=== PATIENT | male | born 1965 | race Caucasian/White ===

== ENCOUNTER → 2018-09-10 11:56 | Outpatient (CLI) | payer OTHER, SELFPAY ==
--- NOTE | 2018-09-10 12:18 | ECHOD_ITS ---
Reason For Study: ARRHYTHMIA Procedure This was a 2D Doppler, Color Flow transthoracic echocardiogram. Exam performed in department. Left Ventricle Normal LV size. Mild concentric left ventricular hypertrophy. Left ventricular systolic function is normal. The estimated ejection fraction is 60 %. Stage 1 diastolic dysfunction. No regional wall motion abnormalities noted. Right Ventricle Normal RV size. Normal systolic function. Atria Normal left atrium. Normal right atrium. Mitral Valve Normal mitral valve. Tricuspid Valve Normal tricuspid valve. Aortic Valve Normal aortic valve. Trisinus/trileaflet aortic valve. Pulmonic Valve Normal pulmonic valve. Great Vessels Mildly dilated aortic root. The pulmonary artery is normal size. Normal inferior vena cava. Pericardium/Pleural No pericardial effusion. MMode/2D Measurements & Calculations LVIDd: 4.8 cm IVSd: 1.2 cm Ao root diam: 3.7 cm LVIDs: 3.5 cm LVPWd: 1.2 cm LA dimension: 3.4 cm RVDd: 3.4 cm FS: 28.0 % LAV(MOD-bp): 39.2 ml LA A4 area: 15.4 cm2 RA A4 area: 11.2 cm2 LAV(MOD-bp) Indexed: 18.7 ml/m2 LAV(MOD-sp2): 39.2 ml LAV(MOD-sp4): 39.2 ml Doppler Measurements & Calculations MV E max canelo: 50.8 cm/sec Lat Peak E' Canelo: 10.2 cm/sec Med Peak E' Canelo: 9.0 cm/sec MV A max canelo: 67.8 cm/sec E/E' lat: 5.0 E/E' med: 5.6 MV E/A: 0.75 Ao V2 max: 117.2 cm/sec LV V1 max: 102.9 cm/sec PA V2 max: 108.4 cm/sec Ao max P.5 mmHg LV V1 max P.2 mmHg Interpretation Summary Normal LV size. Mild concentric left ventricular hypertrophy. Left ventricular systolic function is normal. The estimated ejection fraction is 60 %. Stage 1 diastolic dysfunction. Mildly dilated aortic root. Ordering Physician: Boone Mendoza Referring Physician: Bakari Grant Performed By: Silva Sol, LAZARUS, RVT
[2018-09-10 14:02] LABS: Anion Gap 6 (5-15); BUN 15 mg/dL (7-18); BUN/Creat Ratio 13.6 RATIO (10-20); Chloride 105 mmol/L (98-107); Cholesterol 166 mg/dL (200); EST Glomerular Filtration Rate 75 mL/min (>60); Est Glom Filt Rate - Afr Amer 90 mL/min (>60); Glucose 74 mg/dL (74-106); High Density Lipoprotein 49 mg/dL; Magnesium 1.8 mg/dL (1.6-2.6); Potassium 4.4 mmol/L (3.5-5.1); Sodium Level 139 mmol/L (136-145); Triglycerides 61 mg/dL; Very Low Density Lipoprotein 12 mg/dL (5-40)
--- NOTE | 2018-09-10 15:52 | STRESSREP ---
Stress Test Report Exercise stress test. 52-year-old man with a history of cardiac arrhythmias. Stress protocol: Resting EKG demonstrates normal sinus rhythm with a rate of 71 bpm and occasional premature atrial complexes noted. Resting blood pressure 142/98 mmHg. The patient exercised according to regular Perfecto protocol for total duration of 9 minutes completing stage III of the Perfecto protocol the maximum heart rate attained was 179 bpm which was 106% of maximum predicted heart rate the maximum workload was 10.1 metabolic equivalents. The patient maintained sinus rhythm throughout the recording. At rest there were no ST or T wave changes noted suggest ischemia peak exercise upsloping ST changes only were noted with no meet the criteria for ischemia. No clinical angina was noted no arrhythmias were noted the test was terminated due to leg fatigue. The resting blood pressure is 142/98 with a peak blood pressure of 220/90 mmHg. Rate pressure product was 38,700. Conclusion : Exercise stress test with no EKG criteria for ischemia at a high workload. No clinical angina noted No arrhythmias noted Hypertensive response to exercise.
--- NOTE | 2018-09-10 15:59 | STRESSREP_ITS ---
Stress Test Report Exercise stress test. 52-year-old man with a history of cardiac arrhythmias. Stress protocol: Resting EKG demonstrates normal sinus rhythm with a rate of 71 bpm and occasional premature atrial complexes noted. Resting blood pressure 142/98 mmHg. The patient exercised according to regular Perfecto protocol for total duration of 9 minutes completing stage III of the Perfecto protocol the maximum heart rate attained was 179 bpm which was 106% of maximum predicted heart rate the maximum workload was 10.1 metabolic equivalents. The patient maintained sinus rhythm throughout the recording. At rest there were no ST or T wave changes noted suggest ischemia peak exercise upsloping ST changes only were noted with no meet the criteria for ischemia. No clinical angina was noted no arrhythmias were noted the test was terminated due to leg fatigue. The resting blood pressure is 142/98 with a peak blood pressure of 220/90 mmHg. Rate press ure product was 38,700. Conclusion : Exercise stress test with no EKG criteria for ischemia at a high workload. No clinical angina noted No arrhythmias noted Hypertensive response to exercise.
== END ==
PROVIDERS: Family Provider Family Medicine; PCP Family Medicine; Referring Provider Internal Medicine Cardiovascular Disease; Visit Provider Internal Medicine Cardiovascular Disease
DX: I49.1 Atrial premature depolarization (principal)
CPT/HCPCS: 36415; 80048; 80061; 83735; 93017; 93306

== ENCOUNTER → 2019-02-20 15:23 | Outpatient (CLI) | payer OTHER, SELFPAY ==
[2019-02-20 14:38] VITALS: BMI 33.3
[2019-02-20 17:11] LABS: Absolute Lymphocyte Count 2.73 X10^3/ul (0.83-4.51); Absolute Neutrophil Count 3.9 X10^3/uL (2.0-7.7); Basophil# 0.05 X10^3/uL; Basophil% 0.7 % (0-1); Eosinophil# 0.11 X10^3/uL; Eosinophils% 1.4 % (0-5); Hemoglobin 15.9 g/dl (13.0-16.5); Lymphocyte # 2.73 X10^3/ul (4.0); Lymphocyte % 35.8 % (19-41); Mean Corp Hgb Conc 32.4 g/gl (32-36); Mean Corpuscular Hgb 29.4 pg (27.0-32.0); Mean Corpuscular Volume 90.6 fL (80-94); Mean Platelet Vol. 10.1 fl (6.2-12.0); Monocyte# 0.83 X10^3/uL; Monocyte% 10.9 % (0-10); Neutrophil # 3.88 X10^3/uL (2.7-7.7); Neutrophil % 50.9 % (47-70); POSITIVE COUNT NO; POSITIVE DIFFERENTIAL NO; POSITIVE MORPHOLOGY NO; Platelet Count 260 K/mm3 (150-450); RBC Distribution Width CV 12.7 % (11.6-14.6); RBC Distribution Width SD 42.5 fl (35.1-43.9); Red Blood Count 5.41 M/mm3 (4.6-6.2); White Blood Count 7.6 K/mm3 (4.4-11.0)
[2019-02-20 17:27] LABS: Anion Gap 8 (5-15); BUN 18 mg/dL (7-18); BUN/Creat Ratio 15.7 RATIO (10-20); Calcium,Total 8.9 mg/dL (8.5-10.1); Chloride 106 mmol/L (98-107); Creatinine, Serum 1.15 mg/dL (0.70-1.30); EST Glomerular Filtration Rate 71 mL/min (>60); Est Glom Filt Rate - Afr Amer 86 mL/min (>60); Glucose 95 mg/dL (74-106); Magnesium 2.5 mg/dL (1.6-2.6); Potassium 3.9 mmol/L (3.5-5.1); Sodium Level 143 mmol/L (136-145); Thyroid Stim Hormone (TSH) 1.02 uIU/mL (0.358-3.74)
== END ==
PROVIDERS: Family Provider Family Medicine; PCP Family Medicine; Referring Provider Physician Assistant Medical; Visit Provider Physician Assistant Medical
DX: I10 Essential (primary) hypertension (principal); R53.83 Other fatigue
CPT/HCPCS: 36415; 80048; 83735; 84443; 85025

== ENCOUNTER → 2019-03-26 08:54 | Outpatient (CLI) | payer OTHER, SELFPAY ==
[2019-02-20 14:38] VITALS: BMI 33.3
[2019-03-26 12:10] LABS: Anion Gap 6 (5-15); BUN 18 mg/dL (7-18); BUN/Creat Ratio 15.3 RATIO (10-20); Calcium,Total 8.7 mg/dL (8.5-10.1); Chloride 106 mmol/L (98-107); Creatinine, Serum 1.18 mg/dL (0.70-1.30); EST Glomerular Filtration Rate 69 mL/min (>60); Est Glom Filt Rate - Afr Amer 84 mL/min (>60); Glucose 95 mg/dL (74-106); Potassium 3.9 mmol/L (3.5-5.1); Sodium Level 142 mmol/L (136-145)
== END ==
PROVIDERS: Family Provider Family Medicine; PCP Family Medicine; Referring Provider Physician Assistant Medical; Visit Provider Physician Assistant Medical
DX: I10 Essential (primary) hypertension (principal)
CPT/HCPCS: 36415; 80048

== ENCOUNTER → 2020-10-09 12:08 | Outpatient (CLI) | payer OTHER, SELFPAY ==
[2020-01-07 16:21] VITALS: BMI 32.6
[2020-10-09 12:25] LABS: Absolute Lymphocyte Count 3.39 X10^3/uL (0.83-4.51); Absolute Neutrophil Count 5.9 X10^3/uL (2.0-7.7); Basophil# 0.05 X10^3/uL; Basophil% 0.5 % (0-1); Eosinophil# 0.11 X10^3/uL; Hemoglobin 15.9 g/dL (13.0-16.5); Lymphocyte # 3.39 X10^3/ul (4.0); Lymphocyte % 32.2 % (19-41); Mean Corp Hgb Conc 32.4 g/dL (32-36); Mean Corpuscular Hgb 29.3 pg (27.0-32.0); Mean Corpuscular Volume 90.4 fL (80-94); Mean Platelet Vol. 9.5 fl (6.2-12.0); Monocyte# 1.08 X10^3/uL; Monocyte% 10.2 % (0-10); NRBC Flagged by Analyzer 0 % (0-5); Neutrophil # 5.89 X10^3/uL (2.7-7.7); Neutrophil % 55.9 % (47-70); Platelet Count 252 K/mm3 (150-450); RBC Distribution Width CV 12.6 % (11.6-14.6); RBC Distribution Width SD 41.3 fl (35.1-43.9); Red Blood Count 5.42 M/mm3 (4.6-6.2); White Blood Count 10.5 K/mm3 (4.4-11.0)
== END ==
PROVIDERS: PCP Family Medicine; Referring Provider Family Medicine; Visit Provider Family Medicine
DX: R10.9 Unspecified abdominal pain (principal)
CPT/HCPCS: 36415; 85025

== ENCOUNTER → 2021-01-12 14:16 | Outpatient (CLI) | payer OTHER, SELFPAY ==
[2021-01-06 15:42] VITALS: BMI 33.0
--- NOTE | 2021-01-12 14:18 | ECHOD_ITS ---
Reason For Study: DILATED AORTIC ROOT Procedure This was a 2D Doppler, Color Flow transthoracic echocardiogram. Exam performed in department. Left Ventricle Normal LV size. Left ventricular systolic function is normal. The estimated ejection fraction is 55 %. Stage 1 diastolic dysfunction. No regional wall motion abnormalities noted. Right Ventricle Normal RV size. Normal systolic function. Atria Normal left atrium. Normal right atrium. Mitral Valve Normal mitral valve. Tricuspid Valve Normal tricuspid valve. Aortic Valve Normal aortic valve. Trisinus/trileaflet aortic valve. Pulmonic Valve The pulmonic valve is not well visualized. Great Vessels Normal aortic root. The pulmonary artery is normal size. Normal inferior vena cava. Pericardium/Pleural No pericardial effusion. MMode/2D Measurements & Calculations LVIDd: 5.2 cm IVSd: 1.1 cm Ao root diam: 3.7 cm LVIDs: 3.2 cm LVPWd: 1.1 cm RVDd: 3.2 cm FS: 39.2 % LAV(MOD-bp): 39.6 ml LA A4 area: 14.0 cm2 LA dimension(2D): 3.7 cm LAV(MOD-bp) Indexed: 18.9 ml/m2 LAV(MOD-sp2): 41.9 ml LAV(MOD-sp4): 34.1 ml RA A4 area: 13.7 cm2 Time Measurements MV dec time: 0.23 sec Doppler Measurements & Calculations MV E max canelo: 61.6 cm/sec Lat Peak E' Canelo: 9.9 cm/sec Med Peak E' Canelo: 9.0 cm/sec MV A max canelo: 75.5 cm/sec E/E' lat: 6.2 E/E' med: 6.8 MV E/A: 0.82 Ao V2 max: 138.4 cm/sec LV V1 max: 113.7 cm/sec PA V2 max: 99.1 cm/sec Ao max P.7 mmHg LV V1 max P.2 mmHg Interpretation Summary Normal LV size. Left ventricular systolic function is normal. The estimated ejection fraction is 55 %. Stage 1 diastolic dysfunction. Ordering Physician: Clarissa Roque Referring Physician: Bakari Grant Performed By: Silva Sol, LAZARUS, RVT
== END ==
PROVIDERS: PCP Family Medicine; Referring Provider Physician Assistant Medical; Visit Provider Physician Assistant Medical
DX: I77.810 Thoracic aortic ectasia (principal)
CPT/HCPCS: 93306

== ENCOUNTER 2022-01-06 16:02 | Outpatient (CLI) | payer OTHER, SELFPAY ==
[2022-01-06 17:59] LABS: Anion Gap 3 (5-15); BUN 22 mg/dL (7-18); BUN/Creat Ratio 19.5 RATIO (10-20); Calcium,Total 9.2 mg/dL (8.5-10.1); Chloride 104 mmol/L (98-107); Creatinine, Serum 1.13 mg/dL (0.70-1.30); EST Glomerular Filtration Rate 71 mL/min (>60); Est Glom Filt Rate - Afr Amer 86 mL/min (>60); Glucose 66 mg/dL (74-106); Potassium 3.7 mmol/L (3.5-5.1); Sodium Level 140 mmol/L (136-145)
[2022-01-08 09:51] LABS: MG Sendout 2.1 mg/dL (1.6-2.3)
== END 2022-01-06 23:59 | disposition home or self-care (01) ==
LOC: LAB 16:03
PROVIDERS: PCP Family Medicine; Referring Provider Internal Medicine Cardiovascular Disease; Visit Provider Internal Medicine Cardiovascular Disease
DX: I10 Essential (primary) hypertension (principal)
CPT/HCPCS: 36415; 80048; 83735

== ENCOUNTER → 2022-09-02 | Outpatient (CLI) | payer OTHER, SELFPAY ==
[2022-09-02 14:44] LABS: Anion Gap 4 (5-15); BUN 22 mg/dL (7-18); BUN/Creat Ratio 20.4 RATIO (10-20); Calcium,Total 9.2 mg/dL (8.5-10.1); Chloride 104 mmol/L (98-107); Creatinine, Serum 1.08 mg/dL (0.70-1.30); EST Glomerular Filtration Rate 75 mL/min (>60); Est Glom Filt Rate - Afr Amer 91 mL/min (>60); Glucose 86 mg/dL (74-106); Potassium 3.8 mmol/L (3.5-5.1); Sodium Level 139 mmol/L (136-145)
== END | disposition home or self-care (01) ==
LOC: LAB 13:53
PROVIDERS: PCP Family Medicine; Visit Provider Internal Medicine Cardiovascular Disease
DX: R25.2 Cramp and spasm (principal); R53.1 Weakness
CPT/HCPCS: 36415; 80048

== ENCOUNTER 2023-11-16 20:33 | Observation (INO) | payer OTHER, SELFPAY ==
[2023-11-16 20:34] VITALS: BP 128/100; PULSE 85; RESP 18; TEMP 36.7; O2SAT 98; BMI 32.8
--- NOTE | 2023-11-16 20:36 | EKG12_ITS ---
Test Reason : CP Blood Pressure : / mmHG Vent. Rate : 080 BPM Atrial Rate : 080 BPM P-R Int : 182 ms QRS Dur : 096 ms QT Int : 366 ms P-R-T Axes : 035 -14 014 degrees QTc Int : 422 ms Normal sinus rhythm Normal ECG Confirmed by ALEE HEREDIA, BRAYDON ([id number]), online editor MILE STOEN ([id number]) on 11/17/2023 2:07:05 PM Referred By: Confirmed By:BRAYDON VICKERS MD
--- NOTE | 2023-11-16 20:45 | RAD_ITS ---
INDICATION: chest pain EXAMINATION/TECHNIQUE: X-RAY - XR Chest 1 View COMPARISON: FINDINGS: LINES/DEVICES: None. LUNGS: No consolidation, edema or effusion. No pneumothorax. MEDIASTINUM AND CARDIOVASCULAR STRUCTURES: Cardiac silhouette not enlarged. Central airways and mediastinal contour are unremarkable. BONES AND SOFT TISSUES: Degenerative vertebral changes. RAD/Chest 1 View (Portable) IMPRESSION: No radiographic evidence of acute cardiopulmonary disease. Electronically Signed: Scott Parra DO at 21:02 EST ,
[2023-11-16 20:50] LABS: Absolute Lymphocyte Count 3.11 X10^3/uL (0.83-4.51); Absolute Neutrophil Count 3.7 X10^3/uL (2.0-7.7); Basophil# 0.05 X10^3/uL; Basophil% 0.6 % (0-1); Eosinophil# 0.13 X10^3/uL; Eosinophils% 1.6 % (0-5); Hematocrit 49.9 % (40-54); Hemoglobin 16.3 g/dL (13.0-16.5); Lymphocyte # 3.11 X10^3/ul (0.83-4.51); Lymphocyte % 39.3 % (19-41); Mean Corp Hgb Conc 32.7 g/dL (32-36); Mean Corpuscular Hgb 28.6 pg (27.0-32.0); Mean Corpuscular Volume 87.5 fL (80-94); Mean Platelet Vol. 9.4 fl (6.2-12.0); Monocyte# 0.88 X10^3/uL; Monocyte% 11.1 % (0-10); NRBC Flagged by Analyzer 0 % (0-5); Neutrophil # 3.74 X10^3/uL (2.7-7.7); Neutrophil % 47.3 % (47-70); Platelet Count 230 K/mm3 (150-450); RBC Distribution Width CV 12.6 % (11.6-14.6); RBC Distribution Width SD 40.6 fl (35.1-43.9); White Blood Count 7.9 K/mm3 (4.4-11.0)
[2023-11-16 21:01] VITALS: BP 144/90; PULSE 79; O2SAT 95
[2023-11-16 21:03] LABS: Anion Gap 5 (5-15); BUN 24 mg/dL (7-18); Calcium,Total 9.7 mg/dL (8.5-10.1); Chloride 106 mmol/L (98-107); Creatinine, Serum 1.26 mg/dL (0.70-1.30); EST Glomerular Filtration Rate 63 mL/min (>60); Est Glom Filt Rate - Afr Amer 76 mL/min (>60); Estimated Creatinine Clearance 62.58 ml/min; Glucose 125 mg/dL (74-106); Potassium 3.5 mmol/L (3.5-5.1); Sodium Level 141 mmol/L (136-145)
[2023-11-16 21:07] LABS: Troponin-I HS (w/2H Reflex) 5 pg/mL (3.0-78.0)
--- NOTE | 2023-11-16 21:12 | EDS_ITS ---
HPI History of Present Illness Chief Complaint: Chest Pain Informant: patient Onset/Context/Timing Onset: Weeks Timing: Intermittent Quality: Positive for Pain and Sharp Location: Substernal and Left Chest Narrative Narrative: Patient presents secondary to chest pain and lightheadedness. Patient states for the past couple weeks he has been getting an intermittent sharp pain across the lower sternal area that radiates toward his left chest and sometimes on his left arm. He called Dr. Mendoza's office on Monday and was scheduled to have a stress test in November. Patient states he was told if his symptoms get any worse he should come to the emergency room to be admitted for stress test. Patient states today the pain has been worse. He has felt lightheaded. He has noted decreased activity tolerance stating that he gets winded very easily. Patient states he saw Dr. Mendoza in the past secondary to a irregular heartbeat noted on a physical. He did have a stress test. He has a family history of heart disease with a father having a heart attack at the age of 48. [facility] Medical History COVID-19 (10/21/21) Essential (primary) hypertension PAC (premature atrial contraction) Home Medications ascorbic acid (vitamin C) 1,000 mg tablet 1 g PO DAILY 05/05/23 [History Last Taken Unknown] polyethylene glycol 3350 17 gram oral powder packet (Miralax) 17 g PO DAILY 05/05/23 [History Last Taken Unknown] hydrochlorothiazide 25 mg tablet 25 mg PO DAILY #90 tabs 11/06/23 [Rx Last Taken Unknown] Allergy/AdvReac Type Severity Reaction Status Date / Time No Known Allergies Allergy Verified 11/16/23 20:36 Family History Father Myocardial infarction OR age 39 CAD (coronary artery disease) CABG age 71 Social History Smoking Status: Former smoker alcohol intake: current alcohol intake frequency: holidays/special occasions only ROS ROS ED Constitutional Constitutional ED: Denies chills or fever(s) Eyes Eyes: Denies change in vision or discharge from eye(s) ENT ENT ED: Denies discharge from eye(s), rhinorrhea or sore throat Cardiovascular Cardiovascular: Reports chest pain; Denies palpitations Respiratory/Chest Respiratory/Chest: Reports dyspnea; Denies cough Gastrointestinal Gastrointestinal: Denies abdominal pain, nausea or vomiting Genitourinary Genitourinary ED: Denies dysuria Musculoskeletal Musculoskeletal: Denies back pain or extremity pain Integumentary Denies Abrasions or rash Neurologic Neurologic: Denies headache(s) or weakness Psychiatric Psychiatric: Denies anxiety or depression Allergic/Immunologic Allergic/Immunologic ED: Denies lip swelling or urticaria EXAM Physical Exam Const Vital Signs: 11/16/23 20:34 11/16/23 21:01 11/16/23 21:01 Temperature 98.0 F Temperature Source Temporal Pulse Rate 85 79 Respiratory Rate 18 Blood Pressure 128/100 H 144/90 H Blood Pressure Mean 109 108 Pulse Ox 98 95 Oxygen Delivery Method Room Air Room Air Room Air Positive well nourished and well developed General Appearance ED: well developed HEENT Reports moist mucous membranes Eyes EOMs intact bilaterally Chest Wall inspection of chest normal Chest Narrative: Minimal tenderness along the left sternal border. Resp normal respiratory effort and clear to auscultation bilaterally Cardio regular rate and regular rhythm GI soft to palpation and non-tender Extremity normal to inspection Neuro oriented x3 and no sensory deficits noted Sensorium / Orientation: alert Motor Exam: strength 5/5 throughout Psych mental status grossly normal Skin no rashes or lesions noted Heart Score History: Slightly/Non-Suspicious ECG: Normal Age: >45 - <65 years Risk Factors: 1 or 2 Risk Factors Troponin: </= Normal Limit Score: 2 MDM MDM MDM Narrative Medical decision making narrative: Patient placed on cardiac catheterization technician. IV line established. Lab work initiated by nursing protocol. Aspirin given at the time of my exam. Chest x-ray obtained to evaluate for acute lung pathology, cardiac size, or mediastinal abnormality. History & Record Review Discussion w/independent historian: Patient and Family Lab Data Attestation: I reviewed the patient's lab results. Labs: Laboratory Results - last 24 hr 11/16/23 20:40 WBC 7.9 RBC 5.70 Hgb 16.3 Hct 49.9 MCV 87.5 MCH 28.6 MCHC 32.7 RDW Std Deviation 40.6 RDW Coeff of Raiza 12.6 Plt Count 230 MPV 9.4 Immature Gran % (Auto) 0.100 Neut % (Auto) 47.3 Lymph % (Auto) 39.3 Coal % (Auto) 11.1 H Eos % (Auto) 1.6 Baso % (Auto) 0.6 Absolute Neuts (auto) 3.7 Absolute Lymphs (auto) 3.11 Nucleated RBC % 0 Sodium 141 Potassium 3.5 Chloride 106 Carbon Dioxide 30.0 Anion Gap 5 BUN 24 H Creatinine 1.26 Estim Creat Clear Calc 62.58 Est GFR (MDRD) Af Amer 76 Est GFR (MDRD) Non-Af 63 BUN/Creatinine Ratio 19.0 Glucose 125 H Calcium 9.7 Troponin I High Sens 5 Radiography Chest X-Ray - ED: 1 View, Read by ED Physician, Normal, Heart, Lungs and Mediastinum Diagnostic Testing: Clinical Impression(s) from Imaging Studies Chest X-Ray 11/16/23 20:45 IMPRESSION: No radiographic evidence of acute cardiopulmonary disease. Electronically Signed: Scott Parra DO at 21:02 EST Reading Location ID and State: [facility] / [place] Tel [phone], Service support , EKG Initial EKG: Attestation: I personally reviewed and interpreted this EKG as follows: Interpretation: Sinus Rhythm (Sinus rhythm at 80 bpm. No acute ischemia.) Treatment and Re-Evaluation :: CBC was normal white count 7.9 with a hemoglobin of 16.3. Chemistry studies are unremarkable. Initial troponin is normal at 5. Portable chest x-ray per my interpretation reveals no acute abnormalities. EKG is sinus rhythm with no acute ischemia. Given that the patient is already scheduled for a stress test and was advised to come to the emergency room if his symptoms get worse so that his stress could be done earlier I will speak with hospitalist. I discussed this with the patient and at bedside who are comfortable with this plan. Discharge Plan Triage Chief Complaint: Chest Pain ED Provider: Bell Miller Dx/Rx/DC Orders Clinical Impression: Chest pain Prescriptions: No Action polyethylene glycol 3350 [Miralax] 17 gram powder in packet 17 g PO DAILY ascorbic acid (vitamin C) 1,000 mg tablet 1 g PO DAILY hydrochlorothiazide 25 mg tablet 25 mg PO DAILY Qty: 90 3RF Primary Care Provider: Bakari Grant Referrals: Bakari Grant DO [Primary Care Provider] - Disposition Disposition: Acute Care Hospital [facility]
[2023-11-16] MEDS: Aspirin 81 MG TAB.CHEW 324 MG PO (21:42)
--- OUTSIDE RECORDS SUMMARY | 2023-11-16 21:53 | XMS RPT_ITS ---
Author Name Auto Generated Organization [facility] Care Team Providers Care Filling And Packing Supervisor Name Role Phone JAIMEE RAMÍREZ Consulting Unavailable JAIMEE RAMÍREZ Attending Unavailable PHYSICIAN, NOT RECORDED Primary Care Unavaila ble PROBLEMS DATE TYPE CONDITION / CODE ATTENDING STATUS [facility] RCE 06/19/2023 Admitting Diagnosis Personal history of malignant neoplasm of esophagus / Z85.01(ICD-10) JAIMEE RAMÍREZ Active [facility] ([place]) PROCEDURES No Procedure Records Found RESULTS FINAL SURGICAL PATHOLOGY REPORT Observed : 06/19/2023 10:38 AM Status: F Source: [facility] REPOSITORY . Pathology Reports Accession: Collected Date/Time: Received Date/Time: Pathologist: [id number] 06/19/2023 10:38 EDT 06/20/2023 14:23 EDT MD DONALDO HAAS Final Surgical Pathology Report DIAGNOSIS: CECUM, BIOPSY: - TUBULAR ADENOMA CLINICAL INFORMATION: HISTORY OF POLYPS SPECIMEN: A CECUM POLYP - R/O ADENOMA GROSS DESCRIPTION: All parts labelled with patient name and [id number] Received in formalin labeled cecum polyp is 1 martinez tissue fragment measuring 0.1 cm. TS-1 Yeni Good, Grossing Microphone Operator/ Dr. Pj Garcia, Pathologist Dictated by Yeni Good MICROSCOPIC DESCRIPTION: The microscopic examination is performed, except in the case of Gross Only. Electronically Signed by Pathology Report verified by [facility] DONALDO HAAS MD Sign out Date: 06/21/2023 11:26 Performing Lab: [facility], [address] [place] [id number] [place] [address] Pathology Dept Disclaimer If ancillary studies were utilized, the following Laboratory Developed Test (LDT) disclaimer will apply: Under CLIA requirements, [facility] is qualified to perform high complexity testing. For all ancillary stains, positive and negative controls stain appropriately. Performance characteristics of immunohistochemical and chromogenic in-situ hybridization tests have been determined by [facility]. These tests are used for clinical purposes, They should not be regarded as investigational or for research. ALLERGIES No Allergies Records Found ENCOUNTERS ADMIT/DISCHARGE ACCOUNT NUMBER ADMITTING ENCOUNTER CLASS LOCATION SOURCE 06/19/2023/ 3 [id number] Ambulatory BBuilding:DR SEBASTIAN [facility] ([place]) PAYERS ENCOUNTER GUARANTOR PAYER SUBSCRIBER SOURCE 06/19/2023 JIMENEZ BECERRA: [id number] [address] [place], [place] [address]Ecu: () Primary Insurance:[facility] [facility]: [id number] ve Date:[id number] Name:[facility] Maurice [address] [place] [id number]: JIMENEZ BECERRA: [id number] [address] [place], [place] [address]Zom: (HP) (WP) [facility] ([place])
--- NOTE | 2023-11-16 22:00 | HP.PCM.HOS_ITS ---
[facility] - General General Date of Admission: 11/16/23 Date of Service: 11/16/23 Chief Complaint: Chest Pain and lightheadedness. HPI Narrative JIMENEZ JOSEPH, is a 57 M with a past medical history of essential hypertension, obesity; BMI of 32.9 this admission, former tobacco abuse, history of COVID-19 (2020), positive family history of premature coronary artery disease in his father who sustained an PA at age 39 and history of chest pain and irregular heartbeat; due to frequent PACs treated with a beta-jb and followed by Dr. Mendoza of cardiology who presents to [facility] ER complaining of chest pain and lightheadedness. Mr. Joseph reports his symptoms began approximately 2 weeks prior to admission with chest pain that has been intermittent, sharp, moderate, radiating across his lower sternal area to his left chest and occasionally to his left arm with patient also noting lightheadedness and decreased exercise activity tolerance as he is becoming winded very easily, which is new. He had been in contact with his robot programmer Dr. Mendoza and scheduled to have a stress test in November 2023 but he was told to come to the emergency room if his symptoms worsened between now and then. He does admit to having a stress test previously and he had been taken off of his beta-jb medication a few months ago because his symptoms had resolved at that time. He denies associated fever, chills, nausea, vomiting, diaphoresis or other recent illness/injury. In the ER he was noted to have an unremarkable troponin and a nonspecific EKG and he was then admitted to the CDU under observation status for a stay that is expected to be less than 48 hours. [facility] Medical History COVID-19 (10/21/21) Essential (primary) hypertension PAC (premature atrial contraction) Home Medications ascorbic acid (vitamin C) 1,000 mg tablet 1 g PO DAILY 05/05/23 [History Last Taken Unknown] polyethylene glycol 3350 17 gram oral powder packet (Miralax) 17 g PO DAILY 05/05/23 [History Last Taken Unknown] hydrochlorothiazide 25 mg tablet 25 mg PO DAILY #90 tabs 11/06/23 [Rx Last Taken Unknown] Allergy/AdvReac Type Severity Reaction Status Date / Time No Known Allergies Allergy Verified 11/16/23 20:36 Family History Father Myocardial infarction PA age 39 CAD (coronary artery disease) CABG age 71 Social History household members: spouse number of children: 2 current occupational status: employed 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 Eyes: Patient denies changes in vision or discharge from eyes. ENT: Patient denies runny nose, sore throat or ear pain. Cardiovascular: Patient admits to chest pain and easy fatigability that has become worse recently. Respiratory: Patient admits to shortness of breath but denies cough. Gastrointestinal: Patient denies abdominal pain, nausea, vomiting, diarrhea or constipation. Genitourinary: Patient denies dysuria, hematuria or urinary frequency. Musculoskeletal: Patient denies back pain, neck pain or extremity pain. Integumentary: Patient denies abrasions or rash. Neurologic: Patient denies headache or focal neurologic weakness. Psychiatric: Patient denies significant anxiety or depression. Allergic: Patient denies lip swelling, tongue swelling or urticaria. Hematologic: Patient denies easy bleeding or easy bruisability. 14 point review of systems otherwise negative except for positives noted above in HPI. Vital Signs Vital Signs Vital Signs: 11/16/23 20:34 11/16/23 21:01 11/16/23 21:01 Temperature 98.0 F Temperature Source Temporal Pulse Rate 85 79 Respiratory Rate 18 Blood Pressure 128/100 H 144/90 H Blood Pressure Mean 109 108 Pulse Ox 98 95 Oxygen Delivery Method Room Air Room Air Room Air Weight Weight: 216 lb 3 oz Body Mass Index (BMI) 32.8 Physical Exam Const alert, oriented x3, no apparent distress, average body habitus, healthy appearing and well nourished General Appearance: cooperative HEENT normocephalic, head/scalp atraumatic, hearing grossly normal bilaterally, moist oral mucous membranes and oropharynx normal Eyes PERRL, EOMs intact bilaterally and conjunctivae normal Neck no lymphadenopathy and supple Resp normal respiratory effort, no retractions, no use of accessory muscles and clear to auscultation bilaterally Cardio regular rate and regular rhythm GI normal to inspection, nondistended, normoactive bowel sounds, soft to palpation, non-tender and non-distended Extremity normal to inspection and full ROM Skin Skin Narrative: Patient has no symptoms of rash at this time. Neuro oriented x3, CN's II-XII intact bilaterally, moves all extremities and no focal motor deficits Sensorium / Orientation: awake, alert, oriented to person, oriented to place and oriented to time Speech: speech normal Motor Exam: strength 5/5 throughout Psych affect normal Results Medical Records Data Attestation: I reviewed the patient's medical records Lab / Micro Data Attestation: I reviewed the patient's lab results. 11/16/23 20:40 11/16/23 20:40 Labs: Laboratory Results - last 24 hr 11/16/23 20:40: WBC 7.9, RBC 5.70, Hgb 16.3, Hct 49.9, MCV 87.5, MCH 28.6, MCHC 32.7, RDW Std Deviation 40.6, RDW Coeff of Raiza 12.6, Plt Count 230, MPV 9.4, Immature Gran % (Auto) 0.100, Neut % (Auto) 47.3, Lymph % (Auto) 39.3, Cochran % (Auto) 11.1 H, Eos % (Auto) 1.6, Baso % (Auto) 0.6, Absolute Neuts (auto) 3.7, Absolute Lymphs (auto) 3.11, Nucleated RBC % 0, Sodium 141, Potassium 3.5, Chloride 106, Carbon Dioxide 30.0, Anion Gap 5, BUN 24 H, Creatinine 1.26, Estim Creat Clear Calc 62.58, Est GFR (MDRD) Af Amer 76, Est GFR (MDRD) Non-Af 63, BUN/Creatinine Ratio 19.0, Glucose 125 H, Calcium 9.7, Troponin I High Sens 5 Imagaing Radiology Impression Chest X-Ray 11/16/23 20:45 IMPRESSION: No radiographic evidence of acute cardiopulmonary disease. Electronically Signed: Scott Parra DO at 21:02 EST Reading Location ID and State: [facility] / [place] Tel [phone], Service support , Assessment & Plan Assessment/Plan (1) Chest pain radiating to arm: (2) Weakness: (3) Easy fatigability: PLAN: Plan 1. Chest pain radiating to the left arm with easy fatigability and MARIA - Admit to CDU under observation status. Serialize troponin. Check echocardiogram to evaluate LVEF. Check Lexiscan NST in the AM to evaluate for ischemia. Continue ECASA plus prn sublingual NTG. Give Tylenol prn for [id number] level 1- 5/10 pain or fever. Give morphine IV prn for severe level 6-10/10 pain. Finally, we will consult Dr. Mendoza of the cardiology service to see this patient on-rounds in the AM with help appreciated in advance. 2. History of PAC's and chest pain requiring treatment with beta blockers - We will restart beta blockade after NST if okay with cardiology. 3. Obesity; with BMI of 32.9 this admission - Weight loss will be recommended. Check TSH in light of #1 & #2. 4. DVT prophylaxis - Lovenox 40 mg sq daily plus SCD's. Total time: Approximately 45 minutes. Charges/Coding Visit Charges OBSV E&M: 02136 Observ/hosp same date L1
[2023-11-16 22:43] LABS: Reflex Troponin-HS? (from REC) Y
[2023-11-16 23:11] LABS: Troponin-I HS 5 pg/mL (3.0-78.0)
[2023-11-16 23:19] VITALS: BP 119/80; PULSE 77; RESP 16; O2SAT 97
--- NOTE | 2023-11-16 23:27 | ECHOD_ITS ---
Reason For Study: Chest pain Procedure This was a 2D Doppler, Color Flow transthoracic echocardiogram. Exam performed in department. Left Ventricle Normal LV size. Left ventricular systolic function is normal. The estimated ejection fraction is 55 %. Stage 1 diastolic dysfunction. No regional wall motion abnormalities noted. Right Ventricle Normal RV size. Normal systolic function. Atria The left and right atria are normal. Mitral Valve The mitral valve is structurally normal. No prolapse or stenosis seen. Tricuspid Valve Normal tricuspid valve. Trivial tricuspid valve insufficiency. Unable to estimate RV systolic pressure due to insufficient tricuspid regurgitant envelope. Aortic Valve Trisinus/trileaflet aortic valve. Pulmonic Valve Normal pulmonic valve. Trivial pulmonic valve insufficiency. Great Vessels Normal aortic root. Pericardium/Pleural No pericardial effusion. MMode/2D Measurements & Calculations LVIDd: 4.5 cm IVSd: 0.96 cm Ao root diam: 3.4 cm LVIDs: 2.9 cm LVPWd: 0.98 cm RVDd: 3.3 cm FS: 35.3 % LAV(MOD-bp): 39.3 ml LVAd ap4: 29.5 cm2 LVAd ap2: 25.4 cm2 LAV(MOD-bp) Indexed: 18.6 ml/m2 LVLd ap4: 8.2 cm LVLd ap2: 8.4 cm LAV(MOD-sp2): 39.6 ml EDV(MOD-sp4): 90.2 ml EDV(MOD-sp2): 67.3 ml LAV(MOD-sp4): 34.7 ml EDV(sp4-el): 90.8 ml EDV(sp2-el): 64.9 ml LVAs ap4: 16.7 cm2 LVAs ap2: 16.7 cm2 LVLs ap4: 6.0 cm LVLs ap2: 7.4 cm ESV(MOD-sp4): 41.3 ml ESV(MOD-sp2): 33.1 ml ESV(sp4-el): 39.0 ml ESV(sp2-el): 32.0 ml EF(MOD-sp4): 54.2 % EF(MOD-sp2): 50.7 % EF(sp4-el): 57.1 % SV(MOD-sp4): 48.9 ml SV(MOD-sp2): 34.1 ml SV(sp4-el): 51.9 ml LA dimension(2D): 3.4 cm LA A4 area: 14.9 cm2 RA A4 area: 15.7 cm2 TAPSE: 2.2 cm Time Measurements MV dec time: 0.18 sec Doppler Measurements & Calculations MV E max canelo: 55.9 cm/sec Lat Peak E' Canelo: 10.5 cm/sec Med Peak E' Canelo: 7.9 cm/sec MV A max canelo: 67.7 cm/sec E/E' lat: 5.3 E/E' med: 7.1 MV E/A: 0.83 MV dec slope: 317.9 cm/sec2 Ao V2 max: 105.1 cm/sec LV V1 max: 97.5 cm/sec Ao max P.4 mmHg LV V1 max P.8 mmHg Ao V2 mean: 75.8 cm/sec LV V1 mean P.0 mmHg Ao mean P.6 mmHg LV V1 mean: 67.2 cm/sec Ao V2 VTI: 23.4 cm LV V1 VTI: 19.4 cm AV (velocity ratio): 0.83 PA V2 max: 89.9 cm/sec PA V2 mean: 58.8 cm/sec ECHO/Echo Complete Interpretation Summary The estimated ejection fraction is 55 %. Stage 1 diastolic dysfunction. Normal valve structure. No change from previous echo. Ordering Physician: Loco Wilkes Referring Physician: Bakari Grant Performed By: Jammie Ramires RDCS
--- OUTSIDE RECORDS SUMMARY | 2023-11-16 23:35 | XMS RPT_ITS ---
Author Name Auto Generated Organization OH[facility] Care Team Providers Care Glassware Defect Repairer Name Role Phone DARRELL HEREDIA, DR HERMOSILLO Consulting Unavailabl ryan RAÍMREZ MD, DR HERMOSILLO Attending Unavailabl e PHYSICIAN, NOT RECORDED Primary Care Unavaila ble PROBLEMS DATE TYPE CONDITION / CODE ATTENDING STATUS JASE RCE 06/19/2023 Admitting Diagnosis Personal history of malignant neoplasm of esophagus / Z85.01(ICD-10) DARRELL HEREDIA, DR HERMOSILLO Active [facility] ([place] PROCEDURES No Procedure Records Found RESULTS FINAL SURGICAL PATHOLOGY REPORT Observed : 06/19/2023 10:38 AM Status: F Source: [facility] REPOSITORY . Pathology Reports Accession: Collected Date/Time: Received Date/Time: Pathologist: [id number] 06/19/2023 10:38 EDT 06/20/2023 14:23 EDT MD DONALDO HAAS Final Surgical Pathology Report DIAGNOSIS: CECUM, BIOPSY: - TUBULAR ADENOMA CLINICAL INFORMATION: HISTORY OF POLYPS SPECIMEN: A CECUM POLYP - R/O ADENOMA GROSS DESCRIPTION: All parts labelled with patient name and [id number] Received in formalin labeled cecum polyp is 1 martinez tissue fragment measuring 0.1 cm. TS-1 Yeni Good Grossing Sample Tester/ Dr. Pj Garcia, Pathologist Dictated by Yeni Good MICROSCOPIC DESCRIPTION: The microscopic examination is performed, except in the case of Gross Only. Electronically Signed by Pathology Report verified by [facility] DONALDO HAAS MD Sign out Date: 06/21/2023 11:26 Performing Lab: [facility], [address] [place] [address] [place] [address] Pathology Dept Disclaimer If ancillary studies were utilized, the following Laboratory Developed Test (LDT) disclaimer will apply: Under CLIA requirements, [facility] Pathology Laboratory is qualified to perform high complexity testing. For all ancillary stains, positive and negative controls stain appropriately. Performance characteristics of immunohistochemical and chromogenic in-situ hybridization tests have been determined by [facility] Pathology Laboratory. These tests are used for clinical purposes, They should not be regarded as investigational or for research. ALLERGIES No Allergies Records Found ENCOUNTERS ADMIT/DISCHARGE ACCOUNT NUMBER ADMITTING ENCOUNTER CLASS LOCATION SOURCE 06/19/2023/ 3 [id number] Ambulatory BBuilding:DR SEBASTIAN [facility] ([place]) PAYERS ENCOUNTER GUARANTOR PAYER SUBSCRIBER SOURCE 06/19/2023 JIMENEZ BECERRA: [id number] [place], [place] [address]Rde: () Primary Insurance:[employer] [facility] Number: [id number] ve Date:[id number] Name:[facility] [place] [address] [place] [address]JU: JIMENEZ BECERRA: [id number] DUSTIN RANGEL [facility] [place], [place] [address]Aev: (HP) (WP) [facility])
[2023-11-17 00:05] VITALS: BMI 32.1
[2023-11-17 00:18] VITALS: BP 125/91; PULSE 75; RESP 18; TEMP 36.6; O2SAT 97
--- NOTE | 2023-11-17 02:25 | EKG12_ITS ---
Test Reason : CP ADMIT Blood Pressure : / mmHG Vent. Rate : 064 BPM Atrial Rate : 064 BPM P-R Int : 178 ms QRS Dur : 106 ms QT Int : 394 ms P-R-T Axes : 051 -02 030 degrees QTc Int : 406 ms Normal sinus rhythm Normal ECG When compared with ECG of 16-NOV-2023 21:21, MANUAL COMPARISON REQUIRED, DATA IS UNCONFIRMED Confirmed by ALEE HEREDIA, BRAYDON ([id number]), assignment desk editor MILE STONE ([id number]) on 11/17/2023 2:09:18 PM Referred By: Confirmed By:BRAYDON VICKERS MD
[2023-11-17 04:01] LABS: Troponin-I HS 5 pg/mL (3.0-78.0)
[2023-11-17 04:13] LABS: Cholesterol 181 mg/dL (200); High Density Lipoprotein 44 mg/dL; Triglycerides 99 mg/dL; Very Low Density Lipoprotein 20 mg/dL (5-40)
[2023-11-17 06:00] VITALS: BP 120/89; PULSE 79; RESP 14; TEMP 36.5; O2SAT 97
[2023-11-17] MEDS: Aspirin E.C. 325 MG Tablet PO (06:12)
[2023-11-17] MEDS: 0.9% Saline Lock 10 ML Syringe IV (06:13)
[2023-11-17] MEDS: Acetaminophen 325 MG Tablet 650 MG PO ×2 (06:17→14:24)
[2023-11-17 09:56] VITALS: BP 123/91; PULSE 61; RESP 16; TEMP 36.4; O2SAT 97
[2023-11-17] MEDS: hydroCHLOROthiazide 25 MG Tablet PO (09:59)
[2023-11-17] MEDS: Ascorbic Acid 500 MG Tablet 1000 MG PO (09:59)
--- NOTE | 2023-11-17 14:07 | CHAPLAIN ---
Type of Pastoral Visit _x__ Initial Visit ___ Follow-up Visit ___ On-call Visit ___ General Patient Visit ___ Spiritual Assessment ___ Family Conference ___ Bereavement ___ Rapid Response ___ Code Blue ___ Other (describe below) Pastoral Care Referral From _x__ Patient ___ Family ___ Nurse ___ Physician ___ Software Support Technician ___ Hair Baler ___ Other (describe below) Sacrament/Intervention _x__ Active listening ___ Anointing ___ Gnosticist ___ Bereavement ___ Communion ___ Coni exploration ___ ___ Life review _x__ Prayer ___ Reconciliation ___ Sacrament of Sick ___ Supportive presence ___ Wedding ___ Other (describe below) Pastoral Comments patient reviews his need for coming to the hospital and his 's intervention in that decision; pt had stress test done and is now awaiting test results; pt hopes to go home; pt states this is his first time to be admitted to a hospital; asked about his needs, his comfort, his support; pt states that he does not go to holiness but watching sermons on TV; prayer welcomed
--- NOTE | 2023-11-17 14:58 | DCINST_ITS ---
Discharge Instructions Diet Discharge Diet: Low fat / Low cholesterol Activity Discharge Activity: Return to Normal Activity Dressing / Incision Call your doctor if you observe: Fever of 101 or Higher, Shortness of breath, Dizziness, Fainting spells, Swelling in the ankles, Chest pain and Increased palpitations (irregular heartbeat) Follow Up Care Test Results: Test results from this visit will be discussed in further detail at your follow- up appointment, if applicable. Discharge Plan Admission Admit Date/Time: 11/16/23 23:28 Attending Provider: Frantz Jewell Primary Care Provider: Bakari Grant Consulting Providers: Loco Wilkes Discharge Orders/Prescriptions Prescriptions: Continued polyethylene glycol 3350 [Miralax] 17 gram powder in packet 17 g PO DAILY ascorbic acid (vitamin C) 1,000 mg tablet 1 g PO DAILY hydrochlorothiazide 25 mg tablet 25 mg PO DAILY Qty: 90 3RF Referrals / Follow Up: Bakari Grant DO [Primary Care Provider] - Within 1 Week Disposition Disposition (needs filled in before D/C Order can be placed): Home, Self Care
--- NOTE | 2023-11-17 15:01 | PCM.DC.SUM ---
Providers Date of Admission: 11/16/23 Primary Care Physician: Dr. Bakari Grant DO Reason For Visit: CHEST PAIN & EASY FATIGABILITY Diagnosis Discharge Diagnosis (1) Chest pain radiating to arm: Status: Acute Code(s): R07.89 - Other chest pain (2) Weakness: Status: Acute Code(s): R53.1 - Weakness (3) Easy fatigability: Status: Acute Code(s): R53.83 - Other fatigue Medications at Discharge Home Medications ascorbic acid (vitamin C) 1,000 mg tablet 1 g PO DAILY 05/05/23 polyethylene glycol 3350 17 gram oral powder packet (Miralax) 17 g PO DAILY 05/05/23 hydrochlorothiazide 25 mg tablet 25 mg PO DAILY #90 tabs 11/06/23 Hospital Course Operations None Procedures Nuclear stress test Summary of Care Provided Minutes Spent on Discharge: 37 Hospital Course: Per HPI: JIMENEZ JOSEPH, is a 57 M with a past medical history of essential hypertension, obesity; BMI of 32.9 this admission, former tobacco abuse, history of COVID-19 (2020), positive family history of premature coronary artery disease in his father who sustained an MD at age 39 and history of chest pain and irregular heartbeat; due to frequent PACs treated with a beta-jb and followed by Dr. Mendoza of cardiology who presents to [facility] ER complaining of chest pain and lightheadedness. Mr. Joseph reports his symptoms began approximately 2 weeks prior to admission with chest pain that has been intermittent, sharp, moderate, radiating across his lower sternal area to his left chest and occasionally to his left arm with patient also noting lightheadedness and decreased exercise activity tolerance as he is becoming winded very easily, which is new. He had been in contact with his cotton converter Dr. Mendoza and scheduled to have a stress test in November 2023 but he was told to come to the emergency room if his symptoms worsened between now and then. He does admit to having a stress test previously and he had been taken off of his beta-jb medication a few months ago because his symptoms had resolved at that time. He denies associated fever, chills, nausea, vomiting, diaphoresis or other recent illness/injury. In the ER he was noted to have an unremarkable troponin and a nonspecific EKG and he was then admitted to the CDU under observation status for a stay that is expected to be less than 48 hours. Hospital Course: 1. Chest pain rule out/HTN?57-year-old male who has a family history of of MD in his dad at the age of 39 presented to the hospital for 2 weeks of chest pain. He was scheduled to have an outpatient stress test done at some point in November but was told by his cotton converter office that if his pain were to worsen or change to come to the hospital. 3 sets of troponins were unremarkable and his EKG was nonischemic. He underwent a stress test today which was also read as normal. On my evaluation he was denying any current chest pain at this time and feels much better. Blood pressures are stable and I do recommend continuing his home hydrochlorothiazide. No medication changes were made. I discussed with him the plan for discharge and he expressed understanding the risk and benefits of going home and would like to go home today. I do recommend that he follow-up with cardiology as an outpatient especially if his symptoms persist. Physical Exam Narrative General: Alert, Oriented x3, Cooperative, No apparent distress HEENT: Atraumatic, PERRLA, EOMI, Normocephalic Oral: Moist Mucosa Neck: Supple, No JVD Lungs: Clear to auscultation, Normal air movement, No rhonchi, No wheeze, No rales Cardiovascular: Regular rate, Regular Rhythm, Normal S1, Normal S2, No murmurs Abdomen: Soft, Non Tender, Non-Distended, No Hepato-splenomegaly Extremities: No edema, Capillary Refill Less than 3 Seconds Skin: No rashes, No breakdown Musculoskeletal: No Tenderness to Palpation of Joints or Extremities Neurological: Cranial nerves II-XII grossly intact, Motor Exam 5/5 strength throughout, Sensory exam intact to light touch and pain Psych/Mental Status: Normal Affect, Appropriate Weight / BMI Weight Weight: 214 lb 8.156 oz Body Mass Index (BMI) 32.1 ABG / Lab / Microbiology Data 11/16/23 20:40 11/16/23 20:40 Laboratory: Laboratory Results - last 24 hr 11/16/23 20:40: WBC 7.9, RBC 5.70, Hgb 16.3, Hct 49.9, MCV 87.5, MCH 28.6, MCHC 32.7, RDW Std Deviation 40.6, RDW Coeff of Raiza 12.6, Plt Count 230, MPV 9.4, Immature Gran % (Auto) 0.100, Neut % (Auto) 47.3, Lymph % (Auto) 39.3, Wilbarger % (Auto) 11.1 H, Eos % (Auto) 1.6, Baso % (Auto) 0.6, Absolute Neuts (auto) 3.7, Absolute Lymphs (auto) 3.11, Nucleated RBC % 0, Sodium 141, Potassium 3.5, Chloride 106, Carbon Dioxide 30.0, Anion Gap 5, BUN 24 H, Creatinine 1.26, Estim Creat Clear Calc 62.58, Est GFR (MDRD) Af Amer 76, Est GFR (MDRD) Non-Af 63, BUN/Creatinine Ratio 19.0, Glucose 125 H, Calcium 9.7, Troponin I High Sens 5 11/16/23 22:47: Troponin I High Sens 5, TSH 1.20 11/17/23 03:15: Troponin I High Sens 5, Triglycerides 99, Cholesterol 181, LDL Cholesterol 117, VLDL Cholesterol 20, HDL Cholesterol 44 Radiography Diagnostic Testing: Radiology Impression Chest X-Ray 11/16/23 20:45 IMPRESSION: No radiographic evidence of acute cardiopulmonary disease. Electronically Signed: Scott Parra DO at 21:02 EST Reading Location ID and State: [address] [place] [address] Tel [phone], Service support , D/C Instructions Discharge Diet: Low fat / Low cholesterol Call your doctor if you observe: Fever of 101 or Higher, Shortness of breath, Dizziness, Fainting spells, Swelling in the ankles, Chest pain and Increased palpitations (irregular heartbeat) Meaningful Use Info Meaningful Use Diagnoses (Choose all that apply): None applicable Discharge Plan Admission Admit Date/Time: 11/16/23 23:28 Attending Provider: Frantz Jewell Primary Care Provider: Bakari Grant Consulting Providers: Loco Wilkes Discharge Orders/Prescriptions Prescriptions: Continued polyethylene glycol 3350 [Miralax] 17 gram powder in packet 17 g PO DAILY ascorbic acid (vitamin C) 1,000 mg tablet 1 g PO DAILY hydrochlorothiazide 25 mg tablet 25 mg PO DAILY Qty: 90 3RF Referrals / Follow Up: Bakari Grant DO [Primary Care Provider] - Within 1 Week Disposition Disposition (needs filled in before D/C Order can be placed): Home, Self Care Charges/Coding Visit Charges Inpatient E&M: 29582 Disch Hosp >30min
--- NOTE | 2023-11-17 15:02 | STRESSREP ---
Stress Test Report Treadmill myocardial perfusion stress test. Indication; 57-year-old patient presented with symptoms of chest pain History of hypertension Prior history of COVID in September 2021 EKG showed premature atrial complexes Stress protocol: Perfecto protocol. Resting EKG demonstrates. Normal sinus rhythm. Patient exercised according to standard Perfecto protocol Completed stage II With a total exercise time of 6 minutes Achieving a workload level of 7 METS The resting heart rate of 64 bpm Mari to a maximum heart rate of 136 bpm This is equivalent to 83% of the maximal age-predicted heart rate. The test was terminated patient had symptoms of fatigue and bilateral lower extremity discomfort and chest pain which resolved. The resting electrocardiogram reveals normal sinus rhythm During maximal stress and in recovery there is no significant ST?T abnormalities and no significant ventricular dysrhythmia. Myocardial perfusion protocol. [12 mCi ]of Technetium 99m Sestamibi was injected at rest. Following maximal stress, patient was given [36 mCi ]of Technetium 99m sestamibi was injected. Stress images were obtained stress and rest images were reconstructed and compared in the short axis vertical and horizontal long axis. Gated images were also obtained Perfusion SPECT analysis: Review of the images demonstrate normal uptake of sestamibi at rest, post stress images demonstrate similar uptake of sestamibi to the resting images, homogeneous tracer uptake With no evidence of reversible myocardial ischemia. Reduced tracer Gated SPECT analysis: The gated ejection fraction is 65% Normal LV wall motion and normal LV systolic function Conclusion: Negative treadmill sestamibi myocardial perfusion study for reversible myocardial ischemia Normal LV systolic function. Omari Regalado MD,FACC,[facility]
[2023-11-17 16:41] VITALS: BP 122/83; PULSE 75; RESP 16; TEMP 36.9; O2SAT 97
== END 2023-11-17 15:01 | disposition home or self-care (01) ==
LOC: ED 21:50 → PCU 23:29
PROVIDERS: Admitting Provider Internal Medicine; Emergency Provider Emergency Medicine; PCP Family Medicine; Visit Provider Family Medicine
DX: R07.89 Other chest pain (principal); Z86.16 Personal history of COVID-19; I10 Essential (primary) hypertension; Z87.891 Personal history of nicotine dependence; R53.1 Weakness; R42 Dizziness and giddiness; R53.83 Other fatigue; Z82.49 Family history of ischemic heart disease and other diseases of the circulatory system; Z79.899 Other long term (current) drug therapy; E66.9 Obesity, unspecified; Z68.32 Body mass index [BMI] 32.0-32.9, adult
CPT/HCPCS: 36415; 71045; 78452; 80048; 80061; 84443; 84484; 85025; 93005; 93017; 93306; 99221; 99285; A9500; A4216; G0378

== ENCOUNTER 2023-12-11 15:48 | Observation (INO) | payer OTHER, SELFPAY ==
--- NOTE | 2023-11-30 09:47 | PCM.HP.BLA ---
History and Physical Date of Admission: 12/11/23 This is a 57-year-old gentleman who presents here today for a cardiac catheterization. He does have a history of hypertension and aortic root dilatation. He continues to have episodes of chest pain. His stress test from 11/16/23 was normal. His echocardiogram at that time demonstrated an ejection fraction of 55%, and normal valves. Intake Vital Signs See EMR Allergies See EMR Medications See EMR [facility] Medical History COVID-19 (10/21/21) Essential (primary) hypertension PAC (premature atrial contraction) Family History Father Myocardial infarction PR age 39 CAD (coronary artery disease) CABG age 71 Social History Smoking Status: Former smoker alcohol intake: current alcohol intake frequency: holidays/special occasions only ROS Const Const: Negative for fatigue, weakness, fever(s), headache(s), chills, frequent falls, weight gain or weight loss Eyes Eyes: Negative for blind spots, loss of peripheral vision, transient loss of vision, blurry vision, change in vision, double vision, floaters or tunnel vision ENT ENT: Negative for headache(s), dizziness, Nosebleed/epistaxis, balance problems or neck pain Cardio Chest Pain: Yes Palpitations: No Edema: None Muscle aches with walking: None Resp Respiratory: Negative for SOB with activity, SOB at rest or SOB orthopnea\SOB lying down GI GI: Negative nausea, vomiting, heartburn, bloating, vomiting blood/hematemesis, bright, red blood in stools or black,tarry stools Musc Musc: Negative for muscle aches/ myalgia, muscle weakness, joint pain or balance problems Neuro Neuro: Negative for dizziness, lightheadedness, near syncope, syncope, orthostatic symptoms, frequent falls, headache(s), weakness, blurry vision or double vision Manuel Hematologic/Lymphatic: Negative for easy bleeding or easy bruising Endo Endo: Negative for fatigue Cardiology Exam Const Appearance: cooperative, healthy appearing, comfortable, no acute distress and well developed Orientation: alert, awake and oriented x3 Head Head: normal to inspection Ears: hearing grossly normal bilaterally Nose: external nose normal Face and Sinus: face symmetric Eyes General: appearance normal, both eyes and all related structures Eyelids: eyelids normal Conjunctivae: conjunctivae normal Pupils: PERRL EOM: EOM intact bilaterally Neck Neck: normal visual inspection and trachea midline; Negative no JVD Carotids: Negative bruit Chest Chest inspection: normal inspection of the chest Auscultation: Bilateral: Clear to Auscultation Cardio Palpation: normal PMI Rate: regular rate Rhythm: regular rhythm Heart sounds: S1 normal and S2 normal; Negative rub, gallop or murmur GI GI: normal to inspection and soft Neuro General: patient alert, patient awake, patient oriented x3 and CN's II-XI intact bilaterally Extremities Pulses: Normal: Right Posterior Tibial Pulse, Left Posterior Tibial Pulse, Right Radial Pulse and Left Radial Pulse Lower Extremity Edema: None: Bilateral Psych Psychological: normal affect Supplemental Info Supplemental Information ECHOCARDIOGRAM 01/12/2021 Interpretation Summary Normal LV size. Left ventricular systolic function is normal. The estimated ejection fraction is 55 %. Stage 1 diastolic dysfunction. Exercise stress test 09/10/2018 52-year-old man with a history of cardiac arrhythmias. Stress protocol: Resting EKG demonstrates normal sinus rhythm with a rate of 71 bpm and occasional premature atrial complexes noted. Resting blood pressure 142/98 mmHg. The patient exercised according to regular Perfecto protocol for total duration of 9 minutes completing stage III of the Perfecto protocol the maximum heart rate attained was 179 bpm which was 106% of maximum predicted heart rate the maximum workload was 10.1 metabolic equivalents. The patient maintained sinus rhythm throughout the recording. At rest there were no ST or T wave changes noted suggest ischemia peak exercise upsloping ST changes only were noted with no meet the criteria for ischemia. No clinical angina was noted no arrhythmias were noted the test was terminated due to leg fatigue. The resting blood pressure is 142/98 with a peak blood pressure of 220/90 mmHg. Rate pressure product was 38,700. Conclusion : Exercise stress test with no EKG criteria for ischemia at a high workload. No clinical angina noted No arrhythmias noted Hypertensive response to exercise. Stress test 11/17/2023: Treadmill myocardial perfusion stress test. Indication; 57-year-old patient presented with symptoms of chest pain History of hypertension Prior history of COVID in September 2021 EKG showed premature atrial complexes Stress protocol: Perfecto protocol. Resting EKG demonstrates. Normal sinus rhythm. Patient exercised according to standard Perfecto protocol Completed stage II With a total exercise time of 6 minutes Achieving a workload level of 7 METS The resting heart rate of 64 bpm Mari to a maximum heart rate of 136 bpm This is equivalent to 83% of the maximal age-predicted heart rate. The test was terminated patient had symptoms of fatigue and bilateral lower extremity discomfort and chest pain which resolved. The resting electrocardiogram reveals normal sinus rhythm During maximal stress and in recovery there is no significant ST?T abnormalities and no significant ventricular dysrhythmia. Myocardial perfusion protocol. [12 mCi ]of Technetium 99m Sestamibi was injected at rest. Following maximal stress, patient was given [36 mCi ]of Technetium 99m sestamibi was injected. Stress images were obtained stress and rest images were reconstructed and compared in the short axis vertical and horizontal long axis. Gated images were also obtained Perfusion SPECT analysis: Review of the images demonstrate normal uptake of sestamibi at rest, post stress images demonstrate similar uptake of sestamibi to the resting images, homogeneous tracer uptake With no evidence of reversible myocardial ischemia. Reduced tracer Gated SPECT analysis: The gated ejection fraction is 65% Normal LV wall motion and normal LV systolic function Conclusion: Negative treadmill sestamibi myocardial perfusion study for reversible myocardial ischemia Normal LV systolic function. Echocardiogram 04/16/2023: Interpretation Summary The estimated ejection fraction is 55 %. Stage 1 diastolic dysfunction. Normal valve structure. No change from previous echo. Assessment and Plan Assessment and Plan (1) Chest Pain: Status: Plan: Patient continues to have chest pain. His stress test from 11/16/23 was noted to be normal. Would like to proceed with a cardiac catheterization to further assess this. Depending on results, further recommendations will be made.
[2023-12-08 07:47] VITALS: BMI 32.2
[2023-12-11] VITALS (14 sets, daily range): BP systolic 107–134; BP diastolic 77–91; PULSE 60–82; RESP 16–18; TEMP 36.5–36.8; O2SAT 96–99; BMI 32.2
--- OUTSIDE RECORDS SUMMARY | 2023-12-11 07:54 | XMS RPT_ITS ---
Author Name Auto Generated Organization OHIP Care Team Providers Care Dermatology Physician Assistant Name Role Phone DARRELL HEREDIA, DR HERMOSILLO Attending Unavailabl e PHYSICIAN, NOT RECORDED Primary Care DR JAIMEE Power MD Consulting Unavailabl e PROBLEMS DATE TYPE CONDITION / CODE ATTENDING STATUS JASE RCE 06/19/2023 Admitting Diagnosis Personal history of malignant neoplasm of esophagus / Z85.01(ICD-10) DR JAIMEE RAMÍREZ MD Active [facility] ([place]) PROCEDURES No Procedure Records Found RESULTS FINAL SURGICAL PATHOLOGY REPORT Observed : 06/19/2023 10:38 AM Status: F Source: [facility] REPOSITORY . Pathology Reports Accession: Collected Date/Time: Received Date/Time: Pathologist: [id number] 06/19/2023 10:38 EDT 06/20/2023 14:23 EDT MD DONALDO HAAS Final Surgical Pathology Report DIAGNOSIS: CECUM, BIOPSY: - TUBULAR ADENOMA CLINICAL INFORMATION: HISTORY OF POLYPS SPECIMEN: A CECUM POLYP - R/O ADENOMA GROSS DESCRIPTION: All parts labelled with patient name and [id number] Received in formalin labeled cecum polyp is 1 martinez tissue fragment measuring 0.1 cm. TS-1 Yeni Good Grossing Shower Room Attendant/ Dr. Pj Garcia, Pathologist Dictated by Yeni Good MICROSCOPIC DESCRIPTION: The microscopic examination is performed, except in the case of Gross Only. Electronically Signed by Pathology Report verified by [facility] DONALDO HAAS MD Sign out Date: 06/21/2023 11:26 Performing Lab: [facility], [address] [place] [id number] [place] [address] Pathology Dept Disclaimer If ancillary studies were utilized, the following Laboratory Developed Test (LDT) disclaimer will apply: Under CLIA requirements, [facility] is qualified to perform high complexity testing. For all ancillary stains, positive and negative controls stain appropriately. Performance characteristics of immunohistochemical and chromogenic in-situ hybridization tests have been determined by [facility]. These tests are used for clinical purposes, They should not be regarded as investigational or for research. ALLERGIES No Allergies Records Found ENCOUNTERS ADMIT/DISCHARGE ACCOUNT NUMBER ADMITTING ENCOUNTER CLASS LOCATION SOURCE 06/19/2023/ 3 [id number] Ambulatory BBuilding:DR SEBASTIAN [facility] PAYERS ENCOUNTER GUARANTOR PAYER SUBSCRIBER SOURCE 06/19/2023 JIMENEZ BECERRA: [id number] DUSTIN RANGEL [place], [place] [address]Zpy: () Primary Insurance:[employer] [facility] Number: [id number] Date:[id number] Name:[facility] [place] [address] [place] [id number]: JIMENEZ BECERRA: [id number] DUSTIN RANGEL [facility], [place] [address]Heq: (HP) (WP) [facility])
--- NOTE | 2023-12-11 09:02 | CL.D_ITS ---
Patient Name: JIMENEZ ANAYA Study Date: 12/11/2023 Performing: Boone Mendoza MD Ht: 68 inches 173.99 cm : 1965 Wt: 215.3 lbs 97.52 kg Age: 57 Gender: male BSA: 2.12 PROCEDURE(S) PERFORMED DC02-([id number])[facility] CLINICAL PROFILE AND INDICATIONS Indications: Worsening Angina Heart Failure: None Stress/Imaging Date: 11/16/23Stress Test with SPECT MPI: Positive Low Risk CAD Presentations: No Sxs, no angina. CONCLUSIONS High-grade proximal to mid LAD disease and mild diffuse distal disease. RECOMMENDATIONS Referred for immediate PCI DESCRIPTION OF PROCEDURE The patient arrived to the procedure lab. The risks and benefits of the procedure as well as a full description of our services here and current unavailability of surgical backup were fully explained to the patient and/or their significant other prior to the catheterization. The Timeout was completed, verifying the correct patient and procedure. The patient's procedural site was prepped and draped in the usual fashion. . Using a modified Seldinger technique, . CORONARY ANGIOGRAPHY DOMINANCE: Right Dominant LEFT HEART ASSESSMENT Left Ventricular Ejection Fraction: by Echo 55 % Normal LV wall motion Normal Left Ventricular systolic function LEFT MAIN: Angiographically normal LEFT ANTERIOR DESCENDING ARTERY: MID LAD: 80 % Stenosis DISTAL LAD: Diffusely diseased up to 75 % CIRCUMFLEX ARTERY: Angiographically normal RIGHT CORONARY ARTERY: Angiographically normal COMPLICATIONS PROCEDURE MEDICATIONS SUMMARY OF HEMODYNAMIC DATA Time AIR REST ECG 07:57:49 Signed By Boone Mendoza MD On 12/11/2023 09:01:41 Boone Mendoza MD
--- NOTE | 2023-12-11 10:09 | CL.D_ITS ---
Patient Name: JIMENEZ ANAYA Study Date: 12/11/2023 Performing: Boone Mendoza MD Ht: 68 inches 173.99 cm : 1965 Wt: 215.3 lbs 97.52 kg Age: 57 Gender: male BSA: 2.12 PROCEDURE(S) PERFORMED DC02-([id number])[facility]/COR IC12-(12534/C9600)MARY W/WO PTCA, SINGLE CORONARY ARTERY CLINICAL PROFILE AND INDICATIONS Indications: Worsening Angina Heart Failure: None Stress/Imaging Date: 11/16/2023Stress Test with SPECT MPI: Positive Low Risk CAD Presentations: No Sxs, no angina. CONCLUSIONS high-grade proximal to mid LAD disease and mild difuse distal disease RECOMMENDATIONS Referred for immediate PCI DESCRIPTION OF PROCEDURE The patient arrived to the procedure lab. The risks and benefits of the procedure as well as a full description of our services here and current unavailability of surgical backup were fully explained to the patient and/or their significant other prior to the catheterization. The Timeout was completed, verifying the correct patient and procedure. The patient's procedural site was prepped and draped in the usual fashion. Local anesthetic was given subcutaneously to right radial region with Lidocaine 2%. Using a modified Seldinger technique, arterial access was obtained via the right radial artery, a 6Fr sheath was inserted. Right upper extremity selective angiography was then performed in single view. Left Coronary Artery selective angiography was performed in multiple views using a 5 Fr. 4.0 Austin catheter. Right Coronary Artery selective angiography was then performed in multiple views using a 5 Fr. JL 5 catheter.The arterial sheath was pulled and a TR Band was applied for hemostasis - 10CC AIR CORONARY ANGIOGRAPHY DOMINANCE: Right Dominant LEFT HEART ASSESSMENT Left Ventricular Ejection Fraction: by Echo 55 % Normal LV wall motion Normal Left Ventricular systolic function LEFT MAIN: Angiographically normal LEFT ANTERIOR DESCENDING ARTERY: MID LAD: 80 % Stenosis DISTAL LAD: Diffusely diseased up to 75 % CIRCUMFLEX ARTERY: Angiographically normal RIGHT CORONARY ARTERY: Angiographically normal COMPLICATIONS No Complications PROCEDURE MEDICATIONS Fentanyl 50 mcg IV Versed 1 mg IV Versed 1 mg IV Versed 1 mg IV Fentanyl 25 mcg IV Brilinta 180 mg PO @ 12/11/2023 09:04:42 Heparin given IA 12/11/2023 08:20:04 Heparin 6000 unit(s) IV 12/11/2023 09:32:12 Heparin 2000 unit(s) IV 12/11/2023 09:48:56 Nitro 100 mcg IA 12/11/2023 08:53:07 Nitro 200 mcg IA 12/11/2023 09:26:53 Verapamil 2.5mg, Ntg 100mcgs, 3000 units of Heparin given IA 12/11/2023 08:20:04 IV Bolus: .9 NaCl 350 ml total 12/11/2023 09:46:13 SUMMARY OF HEMODYNAMIC DATA Time AIR REST ECG 08:11:10 AO 123/72 (92) SA 08:28:47 Signed By Boone Mendoza MD On 12/11/2023 10:08:45 Boone Mendoza MD
--- NOTE | 2023-12-11 10:31 | EKG12_ITS ---
Test Reason : AM EKG Blood Pressure : / mmHG Vent. Rate : 064 BPM Atrial Rate : 064 BPM P-R Int : 182 ms QRS Dur : 106 ms QT Int : 382 ms P-R-T Axes : 049 -02 015 degrees QTc Int : 394 ms Normal sinus rhythm Normal ECG When compared with ECG of 11-DEC-2023 10:41, MANUAL COMPARISON REQUIRED, DATA IS UNCONFIRMED Confirmed by ALEE HEREDIA, BOONE ([id number]), pictures editor MILE STONE ([id number]) on 12/12/2023 7:48:18 AM Referred By: Boone Mendoza Confirmed By:BOONE MENDOZA MD
--- NOTE | 2023-12-11 10:45 | PCI.CARDCATH ---
PCI Cardiac Cath Report PCI Report: PCI report 1. Successful PCI of mid LAD with predilatation using 2.5 x 12 mm balloon, followed by placement of a drug-eluting stent 3.5 x 22 mm resolute Bovina frontier With reduction of stenosis from 80% to 0%, pre and post WILLA-3 flow. 2. Successful placement of TR band to close the right radial artery arteriotomy site. Preprocedure diagnosis 57-year-old patient with history of hypertension Had symptoms of chest pain typical of angina. Patient has Covid 9T1N October 21, 2021 and at fatigue numbness and tingling of left hand and symptoms of chest pain radiating to left arm. Based on his clinical presentation he underwent cardiac catheterization today by his primary brick mason Dr. Mendoza. I reviewed the cardiac catheterization views Patient has a LV ejection fraction preserved ejection fraction of 55% The left main is normal angiographically bifurcating into LAD and left circumflex. The mid LAD had 80% lesion and had diffuse disease in the distal LAD The left circumflex moderate in size normal angiographically, RCA is normal angiographically. Consent; Risk and benefit of procedure explained in detail to the patient elected to proceed informed consent obtained. Medication used in the American Board Certified Orthotist 1. We used the heparin IV with acceptable ACT level 2. Brilinta 180 mg was given in the American Board Certified Orthotist as well as the aspirin. Interventional equipment used 1. 6 Yoruba JL 4 guide catheter 2. 180 cm run-through extra floppy straight guidewire 3. 2.5 x 12 mm in manage balloon 4. 3.5 x 22 mm resolute Bovina frontier/drug-eluting stent Procedure in detail; Under fluoroscopic guidance we will proceed with the 6 Yoruba JL 4 using Glidewire Advanced sending aorta and cannulated the left main without difficulty Following this we proceed with run-through extra floppy straight guidewire across the lesion in the mid LAD, then we will proceed with the 2.5 x 12 mm emerge MR balloon dilate the lesion Followed by placement of drug-eluting stent 3.5 x 22 mm resolute Deacon frontiers achieve an excellent result with reduction of stenosis from 80% to 0% Patient remained stable hemodynamically does not have any symptoms of chest pain and there were no significant ST?the abnormalities on the meat inspector. Following this JR4 catheter removed and TR band applied to right radial artery arteriotomy site Conclusion recommendation 1. Successful PCI of the mid LAD as described 2. Patient to continue on dual antiplatelet therapy with Brilinta 90 mg twice daily in addition to low-dose aspirin. 3. Patient is scheduled for phase 1 cardiac rehab program 4. Patient will be seen by his primary brick mason Dr. Mendoza for continuation of cardiac care No complication in the American Board Certified Orthotist Omari Regalado MD,[facility]
[2023-12-11] MEDS: 0.9% Saline Lock 10 ML Syringe IV (11:56)
[2023-12-11] MEDS: 0.9% Normal Saline (1000mL) 1,000 ML 75 ML IV (11:56)
[2023-12-11] MEDS: Acetaminophen 325 MG Tablet 650 MG PO ×2 (13:17→20:05)
--- NOTE | 2023-12-11 14:40 | CRPHASE1 ---
Patient Communication Patient Information PHII Cardiac Rehab Discussed with Patient:: Yes Guide to Cardiac Rehab Given to Patient:: Yes Cardiac Rehab Facility Choice List Given to Patient:: Yes Communication to Cardiac Rehab Choice Program [facility] CR PHII:: Communication Given to CR People Greeter:: Omari Regalado Phase II Cardiac Rehab:: Yes Sessions:: 36 sessions - 3 days/wk, 12 weeks Cardiac Rehabilitation Info Program Information Cardiac Rehabilitation Program Information: Cardiac Rehab The cardiac rehab team at [facility] consists of highly skilled exercise physiologists, nurses, respiratory therapists and physicians working together with you. Our purpose is to help you have a full recovery and achieve the goals you set for yourself. Over the years many of our patients have returned to activities they assumed they would never do again! We can help restore your confidence and motivation to make lifestyle changes that can have a significant impact on your health and quality of life! We can help answer questions and concerns you may have about exercise, lifestyle, medications, diet, stress and anxiety which are common following a hospitalization. WE monitor ECG and vital signs during exercise and discuss your progress with you and report to your physician(s). Cardiac Rehab is proven to help reduce readmissions, improve functional capacity and lower recurrence of problems with your heart. Our Cardiac Rehab program is Certified by the [place] [employer] Cardio-Vascular and Pulmonary Rehabilitation (AACVPR) and Accredited by the [place] [employer] through our [facility]. You can contact us at . We invite you to call us with your questions or to get started in our program. If you have other questions or concerns be sure to ask your physician/provider during your follow-up visit. WE look forward to seeing you!
--- NOTE | 2023-12-11 14:41 | CRPH1.INSTRU ---
General Education Discussed with Patient CAD and cardiac anatomy and function:: Patient communicates acknowledgment Explanation of diagnoses and procedures:: Patient communicates acknowledgment Sign/Symptoms of PA:: Patient communicates acknowledgment Antiplatelet therapy: Patient communicates acknowledgment Proper use of NTG-SL: Patient communicates acknowledgment Emergency procedures and activation of EMS: Patient communicates acknowledgment Compliance of all prescribed medications: Patient communicates acknowledgment Smoking Risk Factors Patient Nicotine/Smoking Risk Factors Are:: Cigarettes Recommendations Recommendations Include:: Previous smoker; encourage continued cessation Response Code Nicotine/Smoking Response Code:: Patient communicates acknowledgment Dyslipidemia Risk Factors Patient Dyslipidemia Risk Factors Are:: Total Cholesterol, Triglycerides, HDL and LDL Recommendations Recommendations Include:: Lipid profile provided, Reviewed NCEP/ATP guidelines and Therapeutic Lifestyle Change dietary guidelines Response Code Dyslipidemia Response Code:: Patient communicates acknowledgment Overweight/Obesity Risk Factors Patient Overweight/Obesity Risk Factors Are:: Obesity - > or = 30 Recommendations Recommendations Include:: Weight loss of 5-10%, Reduced calorie diet and Exercise 5-7 times/week Response Code Overweight/Obesity:: Patient communicates acknowledgment Hypertension Recommendations Recommendations Include:: Maintain BP <130/85, DASH dietary guidelines, Decrease/maintain normal body weight and Moderation of ETOH Response Code Hypertension:: Patient communicates acknowledgment Diabetes Risk Factors Patient Diabetes Risk Factors Are:: No documented hx of diabetes Metabolic Syndrome Risk Factors Patient Metabolic Syndrome Risk Factors Are [3 of 5]:: Fasting blood sugar > 100 mg/dL, Waist circumference > 35 [female] or 40 [male], High triglyceride >150, Hypertension and Low HDL <40 [male] or < 50 [female] Recommendations Recommendations Include:: Reinforce compliance to risk factor modifications and Encouraged follow-up with Primary Care Physician Response Code Metabolic Syndrome Response Code:: Patient communicates acknowledgment Sedentary Risk Factors Patient Sedentary Risk Factors Are:: Lack of regular exercise Recommendations Recommendations Include:: Aerobic exercise 5-7 times/week for 20-30 minutes continuously, Benefits of regular exercise, Discussed home walking program and Monitored Outpatient Cardiac Rehab Response Code Sedentary Response Code:: Patient communicates acknowledgment Stress Recommendations Recommendations Include:: Identification of stressors, and assessment of coping skills and Stress management techniques Response Code Stress Response Code:: Patient communicates acknowledgment
[2023-12-11 15:11] LABS: ACT Activated Clotting Time 244 sec (74-137)
--- OUTSIDE RECORDS SUMMARY | 2023-12-11 16:32 | XMS RPT_ITS ---
Author Name Auto Generated Organization OHIP Care Team Providers Care Director Airport Operations Name Role Phone DARRELL HEREDIA, DR HERMOSILLO Attending Unavailabl e PHYSICIAN, NOT RECORDED Primary Care DR JAIMEE Power MD Consulting Unavailabl e PROBLEMS DATE TYPE CONDITION / CODE ATTENDING STATUS JASE RCE 06/19/2023 Admitting Diagnosis Personal history of malignant neoplasm of esophagus / Z85.01(ICD-10) DR JAIMEE RAMÍREZ MD Active [facility] ([place]) PROCEDURES No Procedure Records Found RESULTS FINAL SURGICAL PATHOLOGY REPORT Observed : 06/19/2023 10:38 AM Status: F Source: [facility] REPOSITORY . Pathology Reports Accession: Collected Date/Time: Received Date/Time: Pathologist: [id number] 06/19/2023 10:38 EDT 06/20/2023 14:23 EDT MD DONALDO HAAS Final Surgical Pathology Report DIAGNOSIS: CECUM, BIOPSY: - TUBULAR ADENOMA CLINICAL INFORMATION: HISTORY OF POLYPS SPECIMEN: A CECUM POLYP - R/O ADENOMA GROSS DESCRIPTION: All parts labelled with patient name and [id number] Received in formalin labeled cecum polyp is 1 martinez tissue fragment measuring 0.1 cm. TS-1 Yeni Good Grossing Radiological Engineer/ Dr. Pj Garcia, Pathologist Dictated by Yeni Good MICROSCOPIC DESCRIPTION: The microscopic examination is performed, except in the case of Gross Only. Electronically Signed by Pathology Report verified by [facility] DONALDO HAAS MD Sign out Date: 06/21/2023 11:26 Performing Lab: [facility], [address] [place] [id number] [place] [address] Pathology Dept Disclaimer If ancillary studies were utilized, the following Laboratory Developed Test (LDT) disclaimer will apply: Under CLIA requirements, [facility] is qualified to perform high complexity testing. For all ancillary stains, positive and negative controls stain appropriately. Performance characteristics of immunohistochemical and chromogenic in-situ hybridization tests have been determined by [facility]ology Laboratory. These tests are used for clinical purposes, They should not be regarded as investigational or for research. ALLERGIES No Allergies Records Found ENCOUNTERS ADMIT/DISCHARGE ACCOUNT NUMBER ADMITTING ENCOUNTER CLASS LOCATION SOURCE 06/19/2023/ 3 [id number] Ambulatory BBuilding:DR SEBASTIAN [facility] ([place]) PAYERS ENCOUNTER GUARANTOR PAYER SUBSCRIBER SOURCE 06/19/2023 JIMENEZ BECERRA: [id number] DUSTIN RANGEL [place], [place] [address]Qok: () Primary Insurance:[employer] [facility] Number: [id number] ve Date:1284-64-15Quhf Name:[facility] [place] [address] [place] [address]GQ: JIMENEZ BECERRA: [id number] DUSTIN RANGEL [facility]OUNT[facility]A MEDICAL CENTERREAGANSI[place], [place] [address]Vci: (HP) (WP) [facility])
[2023-12-12 03:57] VITALS: BP 126/90; PULSE 76; RESP 18; TEMP 36.5; O2SAT 97
[2023-12-12 04:00] VITALS: BP 126/90; PULSE 74; RESP 18; TEMP 36.5; O2SAT 97
--- NOTE | 2023-12-12 07:30 | PCM.PN.CARD ---
Subjective Subjective Patient seen and evaluated. Appears to be doing well. Had uneventful night. Experienced minimal dizziness. Objective Data Vital Signs: Vital Signs Temp Pulse Resp BP Pulse Ox O2 Del Method 97.7 F L 74 18 126/90 H 97 Room Air 12/12/23 04:00 12/12/23 04:00 12/12/23 04:00 12/12/23 04:00 12/12/23 04:00 12/12/23 04:00 Oxygen Delivery Method Room Air Weight: 215 lb Body Mass Index (BMI) 32.2 Intake & Output: Intake and Output for Last 24 Hours 12/10/23 12/11/23 12/12/23 23:59 23:59 23:59 Intake Total 750 / 750 1000 / 1000 Balance 750 / 750 1000 / 1000 Lab / Micro Data Labs: Laboratory Results - last 24 hr 12/11/23 09:50: Activated Clotting Time 244 H Cardiology Labs/Tests Rhythm: EKG: ECHO: Stress Test: Cardiac Cath: PCI: CT Surgery: Holter monitor: EPS: PPM: CXR: Chest CT Scan: Physical Exam Const alert, oriented x3 and no apparent distress General Appearance: cooperative HEENT hearing grossly normal bilaterally Head and Scalp: atraumatic Eyes EOMs intact bilaterally Neck General: normal visual inspection Chest inspection of chest normal and palpation of chest normal Resp normal respiratory effort Auscultation: clear to auscultation bilaterally Cardio regular rate, regular rhythm, S1 normal heart sound and S2 normal heart sound Jugular Venous Distention: JVD GI normal to inspection, nondistended, normoactive bowel sounds Extremity normal capillary refill and no pedal edema Peripheral Pulses: Yes pulses 2+ throughout and femoral pulses present Skin no rashes or lesions noted Neuro oriented x3 and CN's II-XII intact bilaterally Psych Appearance: grossly normal and appropriate Assessment & Plan Assessment/Plan (1) CAD (coronary artery disease): PLAN: Patient underwent PCI of the left anterior descending artery successfully. Patient appears to be doing well. The plan will be to discharge him for outpatient follow-up and cardiac rehabilitation. Capacity Legal Director Instructional Material Reflex Medical hold order details:: IF a medical hold is selected below, a suggested order for a MEDICAL HOLD will reflex upon signing the document. Next of kin: [place] law dictates a PRIORITY LIST for identifying legal decision-maker/legal next of kin in the following order (LNOK): 1st: The patient?s legal guardian, if any 2nd: The patient's spouse (if status is questionable, consult Risk Management) 3rd: The patient?s adult child(shane) (majority, if multiple children) 4th: The patient?s parents 5th: The patient?s adult siblings (majority, if multiple children siblings)
--- NOTE | 2023-12-12 07:50 | PCM.DC ---
Discharge Instructions Diet Discharge Diet: No restrictions Activity Discharge Activity: Return to Normal Activity Additional Activity Instructions:: You must have someone drive you home. Do not drive until instructed by your doctor. You must have someone stay with you all night after your test. Rest in bed or on the couch until the next morning. Limit the number of times you go up and down stairs the day of your test. Apply pressure to the puncture site if you sneeze or cough. Dressing / Incision Call your doctor if your incision/area has: Increased Pain/ Swelling, Increased Redness, Foul Smelling Discharge and Swelling at the incision site Call your doctor if you observe: Fever of 101 or Higher Additional Dressing/Incision Instructions:: Keep the dressing (bandage) on until the next morning. You may then shower, but do not take a tub bath for 5 days after your test. It is normal to have some tenderness and discomfort at the puncture site. Sometimes bruising also occurs. However, if pain, numbness, or coldness occurs below the puncture site (in your leg, toes, arms or fingers) call your doctor at once. You may have a small, marble sized knot at the puncture site. This is normal. Do not rub it. It will go away in 4-6 weeks. Bleeding can occur from the area where the puncture was done. Blood may spurt or drip from the site. If blood spurts, apply pressure right away to stop bleeding and call 911. Although rare, bleeding into the tissue (hematoma) can also occur. If this happens, a large, firm area goose egg under the skin will appear. If any of these occur, lie down as flat as you can and have someone apply firm pressure to the cath site with a gauze pad or a clean washcloth for 10-15 minutes. Call 911 or go to the Emergency Department. Follow Up Care Test Results: Test results from this visit will be discussed in further detail at your follow-up appointment, if applicable. Discharge Plan Admission Admit Date/Time: 12/11/23 15:48 Attending Provider: Boone Mendoza Primary Care Provider: Bakari Grant Discharge Orders/Prescriptions Prescriptions: New atorvastatin 40 mg Tablet 40 mg PO QHS 60 Days Qty: 60 2RF metoprolol succinate 25 mg Tablet Extended Release 24 Hr 25 mg PO DAILY Qty: 60 3RF Brilinta 90 mg Tablet 90 mg PO BID Qty: 60 3RF No Action polyethylene glycol 3350 [Miralax] 17 gram powder in packet 17 g PO DAILY ascorbic acid (vitamin C) 1,000 mg tablet 1 g PO DAILY hydrochlorothiazide 25 mg tablet 25 mg PO DAILY Qty: 90 3RF aspirin [Adult Aspirin Regimen] 81 mg tablet,delayed release (DR/EC) 81 mg PO DAILY Referrals / Follow Up: Bakari Grant DO [Primary Care Provider] - Bertha Diggs SAVINGS COUNSELOR, SAVINGS COUNSELOR-C [Non-Staff -Ordering Privileges] - 01/04/24 10:30 am Disposition Disposition (needs filled in before D/C Order can be placed): Home, Self Care
[2023-12-12 07:58] LABS: Hematocrit 47.4 % (40-54); Hemoglobin 15.4 g/dL (13.0-16.5); Mean Corp Hgb Conc 32.5 g/dL (32-36); Mean Corpuscular Hgb 28.7 pg (27.0-32.0); Mean Corpuscular Volume 88.4 fL (80-94); Mean Platelet Vol. 9.5 fl (6.2-12.0); Platelet Count 226 K/mm3 (150-450); RBC Distribution Width CV 12.4 % (11.6-14.6); RBC Distribution Width SD 40.6 fl (35.1-43.9); Red Blood Count 5.36 M/mm3 (4.6-6.2); White Blood Count 7.5 K/mm3 (4.4-11.0)
[2023-12-12 08:10] VITALS: O2SAT 95
[2023-12-12 08:34] LABS: AST(SGOT) 21 U/L (15-37); Alanine Aminotransfer ALT/SGPT 38 U/L (16-61); Albumin, Serum 3.3 g/dL (3.2-5.0); Alkaline Phosphatase 32 U/L (45-117); Anion Gap 3 (5-15); BUN 17 mg/dL (7-18); BUN/Creat Ratio 17.7 RATIO (10-20); Calcium,Total 8.7 mg/dL (8.5-10.1); Chloride 111 mmol/L (98-107); Creatinine, Serum 0.96 mg/dL (0.70-1.30); EST Glomerular Filtration Rate 85 mL/min (>60); Est Glom Filt Rate - Afr Amer 103 mL/min (>60); Estimated Creatinine Clearance 96.12 ml/min; Globulin 3.4 g/dL (2.2-4.2); Glucose 86 mg/dL (74-106); Potassium 3.8 mmol/L (3.5-5.1); Protein, Total 6.7 g/dL (6.4-8.2); Sodium Level 141 mmol/L (136-145)
[2023-12-12 09:37] VITALS: BP 128/87; PULSE 75; RESP 18; TEMP 36.4; O2SAT 97
[2023-12-12 09:40] VITALS: PULSE 75
[2023-12-12] MEDS: TICAGRELOR 90 MG TABLET PO (09:40)
[2023-12-12] MEDS: Metoprolol(XL)Succ 25 MG Tablet PO (09:40)
[2023-12-12] MEDS: Aspirin E.C. 81 MG Tablet PO (09:40)
--- NOTE | 2023-12-12 09:56 | CASEMGMT ---
Patient has order discharge. Patient discharging on Brilinta, RN CM called [facility]'s to confirm copay. Patient has deductible and copay is $447.20. RN CM in to discuss discharge needs with patient. RN CM provided $5 copay Brilinta savings card to patient. Patient denies needs or help at discharge. Patient had no further questions or concerns.
--- NOTE | 2023-12-12 10:00 | EKG12_ITS ---
Test Reason : post pci Blood Pressure : / mmHG Vent. Rate : 058 BPM Atrial Rate : 058 BPM P-R Int : 176 ms QRS Dur : 104 ms QT Int : 402 ms P-R-T Axes : 049 -02 023 degrees QTc Int : 394 ms Sinus bradycardia Otherwise normal ECG When compared with ECG of 17-NOV-2023 00:39, No significant change was found Confirmed by ALEE HEREDIA, BOONE ([id number]), subeditor MILE STONE ([id number]) on 12/12/2023 7:50:10 AM Referred By: Boone Mendoza Confirmed By:BOONE MENDOZA MD
== END 2023-12-12 07:50 | disposition home or self-care (01) ==
LOC: CLSP 16:06 → PCU 16:06
PROVIDERS: Internal Medicine Interventional Cardiology; Admitting Provider Internal Medicine Cardiovascular Disease; PCP Family Medicine; Referring Provider Internal Medicine Cardiovascular Disease; Visit Provider Internal Medicine Cardiovascular Disease
DX: I25.119 Atherosclerotic heart disease of native coronary artery with unspecified angina pectoris (principal); I10 Essential (primary) hypertension; Z79.82 Long term (current) use of aspirin; Z87.891 Personal history of nicotine dependence; Z79.02 Long term (current) use of antithrombotics/antiplatelets; Z86.16 Personal history of COVID-19; R00.1 Bradycardia, unspecified; R42 Dizziness and giddiness; R07.9 Chest pain, unspecified
CPT/HCPCS: 36415; 80053; 85027; 85347; 92928; 93005; 93454; 96360; 96361; 99152; 99153; 99221; J7030; J7040; Q9967; A4216; C1725; C1769; C1887; C1894; C9600; G0378

== ENCOUNTER → 2023-12-29 | Outpatient (CLI) | payer OTHER, SELFPAY ==
--- NOTE | 2023-12-29 10:00 | CR.HP_ITS ---
CR - History & Physical General Arrival date:: 12/29/23 Arrival time:: 10:00 Date of Referral:: 12/11/23 Date of CR Evaluation:: 12/29/23 Referring Physician: Dr. Mendoza Primary Diagnosis: PTCA History of Present Cardiac Event Onset Date PTCA or coronary stenting:: Yes Vessel: LAD 12/11/2023 Medications Ambulatory Orders Medication Instructions Recorded ascorbic acid (vitamin C) 1,000 mg 1 g PO DAILY vitamin 05/05/23 tablet polyethylene glycol 3350 17 gram 17 g PO DAILY laxative 05/05/23 oral powder packet (Miralax) hydrochlorothiazide 25 mg tablet 25 mg PO DAILY diuretic #90 tabs 11/06/23 aspirin 81 mg tablet,delayed 81 mg PO DAILY 11/28/23 release (Adult Aspirin Regimen) atorvastatin 40 mg tablet 40 mg PO QHS 60 days #60 tabs 12/12/23 clopidogrel 75 mg tablet 75 mg PO .COMPLEX #90 tabs 12/12/23 metoprolol succinate 25 mg 25 mg PO DAILY #60 tabs 12/12/23 tablet,extended release 24 hr Allergies Allergies No Known Allergies Allergy (Verified 11/16/23 20:36) Sleep Disorder Evaluation Hx of Sleep Apnea: No Do you snore loudly (louder than talking or can be heard through closed doors)?: No Do you often feel tired/ fatigued/ sleepy during daytime?: No Has anyone observed you stop breathing during sleep?: No History of Hypertension (for STOP score): Yes STOP Results: Negative Advanced Directives Advanced Directives Power of Financing Analyst: Yes Living Will: Yes Advance Directives Information Provided: Yes Advance Directives on File: Yes DNR Order?:: No Past Medical History Covid-19 Screening Physicial Symptoms Other Clinical Concerns Exposure Risk Pertinent Comorbidities Has a serious heart condition:: Yes Past Medical Illness Medical History COVID-19 (10/21/21) Essential (primary) hypertension PAC (premature atrial contraction) Family History Summary Family History Father Myocardial infarction [place] age 39 CAD (coronary artery disease) CABG age 71 Social History Smoking History Smoking Status: Never smoker Alcohol Use Alcohol Usage: Yes (socially) Substance Abuse Hx Substance Use: No Occupation Occupation (List type of work in comments):: Employed Hours worked per day:: 11 Hobbies, Recreation, Social Activities Hobbies: Other (hunting, camping, fishing) Recreational Activities: I am able to engage in all my recreational activities Social Environment Status Marital Status: Current Living Arrangements Living Environment:: Spouse Children How many children do you have?: 2 Do any of your children live nearby?: Yes Safety Do you feel safe in your surroundings?: Yes Assistance Do you need any assistance at home?: no Review of Systems Review of Systems Hints Review of Present Symptoms: Reports Shortness of Breath with Exertion, Fatigue, Appetite - Normal, Appetite - Special Diet and Sleep - Normal; Denies Shortness of Breath at Rest, PVD, Operative Discomfort, Angina, Wound Healing, Dizziness/Lightheadedness, Heart Arrhythmia/Irregularities or Sexual Changes Pain Is Patient Pain Free?: No Pain Location: other (muscle crampnig) Pain Level: 4/10 Risk Factor Assessment Chief Complaint Chief Complaint: PTCA Vital Signs Pulse Ox: 96 Blood Pressure: 116/74 Pulse Pulse Rate: 83 Pulse Rhythm: Regular Hypertension How long have you been treated?: 4 years Blood Pressure Sitting - Left Arm: 116/74 Stress Stress: Work-related Obesity Height: 5 ft 8.5 in Weight:: 210 lb Weight in Pounds: 210.0 lbs Body Mass Index (BMI): 31.4 Nutritional Referral for Obesity: No Physical Inactivity Physical Inactivity: Physically demanding job Risk Stratification Risk Guidelines: Moderate Risk: Risk Factor for Smoking, Risk Factor for Dyslipidemia, Risk Factor for Diabetes, Risk Factor for Obesity, Risk Factor for Sedentary Lifestyle and Risk Factor for Depression and Highest Risk: Risk Factor for Hypertension For Smoking Smoking Risk Guidelines For Dyslipidemia Dyslipidemia Risk Guidelines For Diabetes Mellitus Diabetes Risk Guidelines For Obesity/Overweight Obesity/Overweight Risk Guidelines For Hypertension Hypertension Risk Guidelines For Sedentary Lifestyle Sedentary Lifestyle Risk Guidelines For Depression Depression Risk Guidelines Family History Family History Father Myocardial infarction CAD (coronary artery disease) Motivation Motivation to Participate On a scale of 1 to 10, how prepared are you to commit to attending program?: 9 What do you see as barriers to successfully being able to complete the program?: work What do you see as the benefits of succesfully completing the program? In other words, what do you hope to get out of participating in the program?: more energy, get back to normal life Are there issues you are dealing with that will interfere with completing the program?: no Do you have a spouse or signficant other, family or friends who will help support you to complete the program?: yes
--- NOTE | 2023-12-29 10:07 | CR.ITP_ITS ---
Diagnosis General Information Admitting Diagnosis: PTCA Personal Learning Style:: Audio/Visual, Demonstration, Group, Individual Preference and Written Stage of change r/t lifestyle modifications:: Contemplation Gave educational material for:: Treating Heart Disease, How The Heart Works, What it means to have Heart Disease, How Coronary Artery Disease is Diagnosed, Heart Procedures, What Heart Medications Do, Risk Factors & Modifications, Living an Active Life, Nutrition, Emotions & Heart Disease, Stress Management & Relaxation and Sleep Disorders & Heart Disease Education/Goals Cardiac Rehabilitation Goals Personal Goals: Initial Assessment: Improve management of stress and emotions, Improve energy level, Participate in home exercise program, Improve knowledge of cardiac disease, Improve muscle strength and endurance, Improve diet and eating habits (eat healthier), Control risk factors (learn risk factor modification) and Other goal: Scale for measuring improvement of personal goals Diagnosis & Disease Process Outcomes/Goals: Pt IDs own risk factors & lifestyle modifications by Session 10, Verbalizes symptoms of angina & response by session 3., Pt independently manages and Other Additional Outcomes/Goals: Plan/Interventions: Assist Pt to ID & engage in lifestyle modification to reduce CVD risk, Instruct on individual risk factors, Review symptoms of angina & emergency actions, Review secondary diagnosis & identify educational needs. and Other see comment 30 day Reassessments:: Not Met 30 day Reassessments:: Not Met 30 day Reassessments:: Not Met 30 day Reassessments:: Not Met Final Reassessments:: Not Met Safety Referral to Physical Therapy: No Referral to [facility] Case Management: No Fall Risk Assessed:: Yes Assistive Devices:: None Exercise - Initial Assessment Visit Date of Eval: 12/29/23 (initial eval ) Mets: Pre-: >3 METS for 30 minutes by discharge, >5 METS for 30 minutes by discharge, >7 METS for 30 minutes by discharge and Unable to meet goal due to: (see comment below) Physician Prescribed Exercise Modalities: Treadmill, Rower, Airdyne, NuStep, SciFit and Lateral Performance Improvement Coordinator Frequency: 2x/week for 18 weeks [36 sessions] and 3x/week for 12 weeks [36 sessions] Intensity: 60-80% of age predicted maximum heart rate reserve Duration: 30 - 45 minutes Current METSs:: 3 Target Heart Rate:: 97-113 EKG Type: SB Outcomes & Goals Goals:: Verbalizes understanding of THR, RPE & goal METS by session 6, Documents in home exercise log/reports 30 min aerobic 5 day/wk by DC, Demonstrates accurate pulse taking by DC and Other additional outcome/goals: see below Intervention & Plan Exercise Program Goals: Instruct on personal THR & RPE, Instruct on MET level & personal MET goal, Show patient to take own pulse /validate performance until accurate, Instruct on home exercise and Other additional plan/int Physical Activity Home Exercise Physical Activity - Home Exercise: Safe Exercise, Warm-up, Self-monitoring, Cool-Down, Home Exercise > 30 min Daily and Sitting Time <3 hours/daily Outcomes & Goals Outcomes/Goals: Demonstrates correct Warm-up/exercise Cool-Down (S3) if = 2.5 METs, Verbalizes symptoms of exercise intolerance by Session 3 (S3), Demonstrate safe equipment use (S3) & follows exercise prescrition (6) and Other: See below Intervention & Plan Plan/Intervention: Instruct warm-up & cool-down if exercising at > 2 METs, Instruct on symptoms of exercise intolerance & actions to take, Instruct & monitor on saf, Assess intial functional capacity & safety risk and Other See below Nutrition - Initial Assessment Program Goals Nutrition Program Goals Patient has diagnosis of Hyperlipidemia (ICD E78)?: No Visit Date of Eval: 12/29/23 (initial eval ) Cholesterol/Lipids (Other Core Measures) Determine presence & major risk factors that modify LDL goal: Cigarette smoking, Hypertension or hypertensive medication, Low HDL cholesterol <40 mg/dL*, Family history of premature CHD in Male < 55 years: female <65 yearsFa and Age men > 45 years; women >/= 55 years Outcomes/Goals: Pt IDs own risk factors & lifestyle modifications by Session 10, Verbalizes symptoms of angina & response by session 3., Pt independently manages and Other Additional Outcomes/Goals: Intervention/Plan: Advocate for lipid panel cholesterol medication if applicable, Instruct on personal lipid levels & lipid goals/NCEP guidelines, Instruct on cholesterol and Other additional plan/int Referral to dietitian:: No Diabetes (Other Core Measures) Diabetes Type: Not Applicable Weight Mgt (Other Care) Height: 5 ft 8.5 in Weight:: 210 lb BMI: 31.4 Diagnosis Overweight/Obesity BMI> 30% ICD-10 E66: Yes Diagnosis High BMI/Morbid Obesity BMI> 35% ICD-10 Z68: No Outcomes/Goals: Pt sets, maintains & shows weight loss goal & trend during rehab and Other additional outcomes/goals Intervention/Plan: Instruct on ideal BMI & set weight loss goal w/patient, Assist pt to ID & incorporate diet changes for weight loss by S9, Refer to Structured Weight Loss program as appropriate, Encourage goal of using 250- 300dcal per session for weight loss and Other additional plan/interventions Healthy Eating Habits Will attend diet classes:: Yes Outcomes/Goals:: Consume diet rich in vegs,fruits,whole grain/high fiber,fish,lean meat, Limit sat/trans fats,cholesterol & added salts & sugars and Other additional outcome/goals: Intervention/Plan:: Assess current eating habits and Other Additional plan/interventions Education Gave educational materials for:: Signs & symptoms of hypoglycemia, Signs & symptoms of hyperglycemia, Relate diabetes to coronary artery disease and Healthy eating Core - Initial Assessment Visit Date of Eval: 12/29/23 (initial eval ) Medication Compliance Preventative Medication(s):: Aspirin, Clopidogrel/P2Y12 inhibit, Statin/lipid and Beta jb H/O mental health issues: depression, anxiety, or addiction?: No Doesn?t believe in the benefits of treatment?: No Believes medications are unnecessary or harmful?: No Has a concern about medication side effects?: No Expresses concern over the cost of medications?: No Outcomes/Goals: Verbalizes medications,desired effect & common side effects @ DC, Pt self-reports following medication regimen, Keeps card in wallet w/medications listed by DC and Other additional outcome/goals: Interventions/plans: Instruct on medication effects & side effects, Review medication list w/patient every two weeks, Instruct importance of taking meds as ordered & assist problem solving and Other additional Tobacco Use Tobacco Use: Non-smoker Hypertension Hypertension Diagnosis:: Hypertension ICD-10 I10 Resting Blood Pressure:: 116/74 [employer] Hypertension Guidelines Outcomes/Goals: Able to verbalize/achieve optimal blood pressure <130/80, Incorporates diet changes & exercise for blood pressure control by DC and Other additional outcomes/goals Interventions/plan: Instruct on optimal blood pressure, hypertension & medications, Instruct on effects of sodium, alcohol, stress, exercise &hypertension and Other additional plan/interventions Tobacco Cessation Referral Smoking Cessation Referral:: No Individual Education/Counseling:: No Education Schedule Given:: Yes Psychosocial - Initial Assess VIsit Date of Eval: 12/29/23 (initial eval ) History of previous Mental disease:: No Target Goals Target Goals Outcomes/Goals: See list Psychosocial Outcomes/Goals:: ID's personal stressors & 2 strategies to manage stress by discharge and Other Additional outcome/goals: Intervention/Plan: See List Interventions/Plan:: Assess stressors,coping strategies & signs of derpression on admission, Instruct/assist pt to develop coping & personal stress Mgt strategies, Refer to Behavioral Health if appropriate, Refer to Physician if appropriate, Instruct patient to recognize signs & symptoms of depression, Instruct patient to recog and Other additional plan/intervention Patient Health Questionnaire PHQ-9 Screening Initial Assessment: 1. Little interest or pleasure in doing things: More than half the days 2. Feeling down, depressed, or hopeless: Several days 3. Trouble falling or staying asleep, or sleeping too much: Several days 4. Feeling tired or having little energy: More than half the days 5. Poor appetite or overeating: Not at all 6. Feeling bad about yourself -- or that you are a failure or have let yourself or your family down: Not at all 7. Trouble concentrating on things, such as reading the newspaper or watching television: Not at all 8. Moving or speaking so slowly that other people could have noticed. Or the opposite - being so fidgety or restless that you have been moving around a lot more than usual: Not at all 9. Thoughts that you would be better off , or of hurting yourself in some way: Not at all How difficult have these problems made it for you to do your work, take care of things at home, or get along with other people?: Not difficult at all Total Score: 6 KAMILAH-Q SV Test Statements CAD is a disease of the arteries in the heart: False Examples of risk factors for heart disease: I Don't Know Angina is chest pain or discomfort: True The benefits of resistance training include: True Eating more meat and dairy products: False Anti-platelet medications such as aspirin are important: True The only effective way to manage stress: False An exercise warm-up slowly increases heart rate: I Don't Know Prepared, processed foods usually have high sodium: True Depression is common after a heart attack: I Don't Know The statin medications lower cholesterol: I Don't Know To control blood pressure, lower the amount of sodium: True If someone gets chest discomfort during walking: False Transfats are partially hydrogenated vegetable oils: I Don't Know Sleep apnea that is not treated increases the risk: I Don't Know To control cholesterol, one should become a vegetarian: False Someone knows if he/she is exercising at the right level: I Don't Know Diabetes cannot be prevented with exercise & health eating: True Stress is a large risk for heart attack: I Don't Know A diet that can help lower blood pressure is rich in: True Total Score Total Correct Responses: 11 Self-Efficacy 6-Item Scale Initial Assessment: We would like to know how confident you are in doing certain activities. Please select your confidence level for: Fatigue Select Number: 10 Physical Discomfort or Pain Select Number: 10 Emotional Distress Select Number: 8 Other Symptoms or Health Problems Select Number: 10 Different Tasks and Activities Select Number: 10 Medication Select Number: 10 Total Score:: 9 Nutrition Survey Nutrition Survey Instructions Scoring Instructions Nutrition Survey Initial: Have you lost >10 lbs over the past 2 months without trying?: No Are you following a special diet at home for diabetes, low fat, or low salt?: No Are you interested in meeting with a dietitian for help understanding your diet?: No Do you eat less than 3 meals a day?: No Do you eat fatty meats (ferguson, sausage, ribs, etc), fried foods, desserts, large amounts of salad dressings, margarine, butter, or cheese most days?: Yes Do you have food allergies? [Enter types in comment field]: No Do you eat in restaurants more than 3 times a week?: No Do you season food with salt, seasoning salt, or garlic salt?: Yes Do you used canned, boxed, frozen meals, or soups, seasoning packets?: No Total Score:: 2 Exercise - Final/Discharge Physician Prescribed Exercise Modalities: Treadmill, Rower, Airdyne, NuStep, SciFit and Lateral [place] Frequency: 2x/week for 18 weeks [36 sessions] and 3x/week for 12 weeks [36 sessions] Intensity: 60-80% of age predicted maximum heart rate reserve Current METSs:: 3 Target Heart Rate:: 97-113 Nutrition - 30-Day Assessment Weight Mgt (Other Care) Height: 5 ft 8.5 in Weight:: 210 lb BMI: 31.4 Nutrition - 60-Day Assessment Weight Mgt (Other Care) Height: 5 ft 8.5 in Weight:: 210 lb BMI: 31.4 Core - Final Assessment Hypertension Resting Blood Pressure:: 116/74 [employer] Hypertension Guidelines Core - 60-Day Assessment Hypertension Resting Blood Pressure:: 116/74 [employer] Hypertension Guidelines Psychosocial - 30-Day Assess Target Goals Target Goals Psychosocial - 60-Day Assess Target Goals Target Goals Psychosocial - 90-Day Assess Target Goals Target Goals Psychosocial - Final Assessmen Target Goals Target Goals Nutrition - 90-Day Assessment Weight Mgt (Other Care) Height: 5 ft 8.5 in Weight:: 210 lb BMI: 31.4 Nutrition - Final Assessment Program Goals Patient has diagnosis of Hyperlipidemia (ICD E78)?: No Weight Mgt (Other Care) Height: 5 ft 8.5 in Weight:: 210 lb BMI: 31.4
[2023-12-29 10:39] VITALS: BP 116/74; PULSE 83; O2SAT 96
[2023-12-29 11:19] VITALS: BMI 31.4
[2023-12-29 11:22] VITALS: BP 116/74; BMI 31.4
--- OUTSIDE RECORDS SUMMARY | 2023-12-29 12:49 | XMS RPT_ITS ---
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 Pathology Reports Accession: Collected Date/Time: Received Date/Time: Pathologist: [id number] 06/19/2023 10:38 EDT 06/20/2023 14:23 EDT MD DONALDO HAAS Final Surgical Pathology Report DIAGNOSIS: CECUM, BIOPSY: - TUBULAR ADENOMA CLINICAL INFORMATION: HISTORY OF POLYPS SPECIMEN: A CECUM POLYP - R/O ADENOMA GROSS DESCRIPTION: All parts labelled with patient name and [id number] Received in formalin labeled cecum polyp is 1 martinez tissue fragment measuring 0.1 cm. TS-1 Yeni Good Grossing Sales Service Technician/ Dr. Pj Garcia, Pathologist Dictated by Yeni Good MICROSCOPIC DESCRIPTION: The microscopic examination is performed, except in the case of Gross Only. Electronically Signed by Pathology Report verified by [facility] DONALDO HAAS MD Sign out Date: 06/21/2023 11:26 Performing Lab: [facility], [address] [place] [id number] [place] [address] Pathology Dept Disclaimer If ancillary studies were utilized, the following Laboratory Developed Test (LDT) disclaimer will apply: Under CLIA requirements, [facility] is qualified to perform high complexity testing. For all ancillary stains, positive and negative controls stain appropriately. Performance characteristics of immunohistochemical and chromogenic in-situ hybridization tests have been determined by [facility]. These tests are used for clinical purposes, They should not be regarded as investigational or for research. ALLERGIES No Allergies Records Found ENCOUNTERS ADMIT/DISCHARGE ACCOUNT NUMBER ADMITTING ENCOUNTER CLASS LOCATION SOURCE 06/19/2023/ 3 [id number] Ambulatory BBuilding:DR SEBASTIAN [facility] [place] PAYERS ENCOUNTER GUARANTOR PAYER SUBSCRIBER SOURCE 06/19/2023 JIMENEZ BECERRA: [id number] DUSTIN [place]ANGEL [place], [place] [address]Qcx: () Primary [facility]:[employer] [facility] Number: [id number] Date:[id number] Name:[facility] [place] [address] [place] [id number]: JIMENEZ BECERRA: [id number] DUSTIN RANGEL TANYASAN [facility] [place], [place] [address]Ghj: (HP) ([place]) [facility])
== END | disposition home or self-care (01) ==
LOC: CR 09:49
PROVIDERS: PCP Family Medicine; Referring Provider Internal Medicine Cardiovascular Disease; Visit Provider Internal Medicine Cardiovascular Disease
DX: Z98.61 Coronary angioplasty status (principal)

== ENCOUNTER 2024-01-19 08:00 | Outpatient (RCR) | payer OTHER, SELFPAY ==
[2023-12-29 11:22] VITALS: BMI 31.4
== END 2024-01-25 23:59 ==
LOC: CR 08:00
PROVIDERS: PCP Family Medicine; Referring Provider Internal Medicine Cardiovascular Disease; Visit Provider Internal Medicine Cardiovascular Disease
DX: R53.83 Other fatigue (principal); R20.0 Anesthesia of skin; R20.2 Paresthesia of skin; R07.89 Other chest pain; I10 Essential (primary) hypertension
CPT/HCPCS: 93798

== ENCOUNTER 2024-02-23 08:00 | Outpatient (RCR) | payer OTHER, SELFPAY ==
[2023-12-29 11:22] VITALS: BMI 31.4
--- NOTE | 2024-01-26 07:23 | CR.ITP_ITS ---
Exercise - Initial Assessment Visit Session #:: 6 Nutrition - Initial Assessment Weight Mgt (Other Care) Height: 5 ft 8.5 in Weight:: 210 lb BMI: 31.4 Psychosocial - Initial Assess Target Goals Target Goals Patient Health Questionnaire PHQ-9 Screening 30-Day Re-eval Assessment: 1. Little interest or pleasure in doing things: More than half the days 2. Feeling down, depressed, or hopeless: Several days 3. Trouble falling or staying asleep, or sleeping too much: Several days 4. Feeling tired or having little energy: More than half the days 5. Poor appetite or overeating: Not at all 6. Feeling bad about yourself -- or that you are a failure or have let yourself or your family down: Not at all 7. Trouble concentrating on things, such as reading the newspaper or watching television: Not at all 8. Moving or speaking so slowly that other people could have noticed. Or the opposite - being so fidgety or restless that you have been moving around a lot more than usual: Not at all 9. Thoughts that you would be better off , or of hurting yourself in some way: Not at all How difficult have these problems made it for you to do your work, take care of things at home, or get along with other people?: Not difficult at all Total Score: 6 Self-Efficacy 6-Item Scale 30-Day Re-eval Assessment: We would like to know how confident you are in doing certain activities. Please select your confidence level for: Fatigue Select Number: 10 Physical Discomfort or Pain Select Number: 10 Emotional Distress Select Number: 8 Other Symptoms or Health Problems Select Number: 10 Different Tasks and Activities Select Number: 10 Medication Select Number: 10 Total Score:: 9 Nutrition Survey Nutrition Survey Instructions Scoring Instructions Exercise - 30-day Assessment Visit Date of Eval: 01/26/24 Session #:: 6 Physician Prescribed Exercise Modalities: Treadmill, Airdyne and NuStep Frequency: 3x/week for 12 weeks [36 sessions] Intensity: 60-80% of age predicted maximum heart rate reserve Duration: 30 - 45 minutes Current METSs:: 3.7 Target Heart Rate:: 97-113 Current RPE:: 10-11 Maximum Excercise HR:: 109 Resting Blood Pressure: 110/80 Maximum Exercise Blood Pressure: 140/86 EKG Type: NSR to ST with an isolated PVC Outcomes & Goals Goals:: Verbalizes understanding of THR, RPE & goal METS by session 6, Documents in home exercise log/reports 30 min aerobic 5 day/wk by DC, Demonstrates accurate pulse taking by DC and Other additional outcome/goals: see below Intervention & Plan Exercise Program Goals: Instruct on personal THR & RPE, Instruct on MET level & personal MET goal, Show patient to take own pulse /validate performance until accurate, Instruct on home exercise and Other additional plan/int 30-day Reassessments 30 day Reassessments:: Progressing Reassessment Notes & Comments:: RPE explained Physical Activity Home Exercise Physical Activity - Home Exercise: Safe Exercise, Warm-up, Self-monitoring, Cool-Down, Home Exercise > 30 min Daily and Sitting Time <3 hours/daily Outcomes & Goals Outcomes/Goals: Demonstrates correct Warm-up/exercise Cool-Down (S3) if = 2.5 METs, Verbalizes symptoms of exercise intolerance by Session 3 (S3), Demonstrate safe equipment use (S3) & follows exercise prescrition (6) and Other: See below 30-day Reassessments 30 day Reassessments:: Progressing Reassessment Notes & Comments:: warm up encouraged Nutrition - 30-Day Assessment Program Goals Nutrition Program Goals Patient has diagnosis of Hyperlipidemia (ICD E78)?: No Visit Date of Eval: 01/26/24 Session #:: 6 Cholesterol/Lipids (Other Core Measures) Determine presence & major risk factors that modify LDL goal: Cigarette smoking, Hypertension or hypertensive medication, Low HDL cholesterol <40 mg/dL*, Family history of premature CHD in Male < 55 years: female <65 yearsFa and Age men > 45 years; women >/= 55 years Outcomes/Goals: Pt IDs own risk factors & lifestyle modifications by Session 10, Verbalizes symptoms of angina & response by session 3., Pt independently manages and Other Additional Outcomes/Goals: Intervention/Plan: Advocate for lipid panel cholesterol medication if applicable, Instruct on personal lipid levels & lipid goals/NCEP guidelines, Instruct on cholesterol and Other additional plan/int Referral to dietitian:: No 30-day Reassessments:: Progressing Reassessment Notes & Comments:: pt to attend nutrition class Diabetes (Other Core Measures) Diabetes Type: Not Applicable Weight Mgt (Other Care) Height: 5 ft 8.5 in Weight:: 210 lb BMI: 31.4 Diagnosis Overweight/Obesity BMI> 30% ICD-10 E66: Yes Diagnosis High BMI/Morbid Obesity BMI> 35% ICD-10 Z68: No Outcomes/Goals: Pt sets, maintains & shows weight loss goal & trend during rehab and Other additional outcomes/goals Intervention/Plan: Instruct on ideal BMI & set weight loss goal w/patient, Assist pt to ID & incorporate diet changes for weight loss by S9, Refer to Structured Weight Loss program as appropriate, Encourage goal of using 250- 300dcal per session for weight loss and Other additional plan/interventions 30 day Reassessments:: Progressing Reassessment Notes & Comments:: pt to attend nutrition class Healthy Eating Habits Will attend diet classes:: Yes Outcomes/Goals:: Consume diet rich in vegs,fruits,whole grain/high fiber,fish,lean meat, Limit sat/trans fats,cholesterol & added salts & sugars and Other additional outcome/goals: Intervention/Plan:: Assess current eating habits and Other Additional plan/interventions 30-day Reassessments:: Progressing Reassessment Notes & Comments:: pt to attend nutrition class Education Gave educational materials for:: Signs & symptoms of hypoglycemia, Signs & symptoms of hyperglycemia, Relate diabetes to coronary artery disease and Healthy eating Nutrition - 60-Day Assessment Weight Mgt (Other Care) Height: 5 ft 8.5 in Weight:: 210 lb BMI: 31.4 Core - 30-Day Assessment Visit Date of Eval: 01/26/24 Session #:: 6 Medication Compliance Preventative Medication(s):: Aspirin, Clopidogrel/P2Y12 inhibit and Beta jb H/O mental health issues: depression, anxiety, or addiction?: No Doesn?t believe in the benefits of treatment?: No Believes medications are unnecessary or harmful?: No Has a concern about medication side effects?: No Expresses concern over the cost of medications?: No Outcomes/Goals: Verbalizes medications,desired effect & common side effects @ DC, Pt self-reports following medication regimen, Keeps card in wallet w/medications listed by DC and Other additional outcome/goals: Interventions/plans: Instruct on medication effects & side effects, Review medication list w/patient every two weeks, Instruct importance of taking meds as ordered & assist problem solving and Other additional 30-day Reassessments:: Progressing Reassessment Notes & Comments:: pt taken off of his statin due to muscle and joint pain Tobacco Use Tobacco Use: Non-smoker Hypertension Hypertension Diagnosis:: Hypertension ICD-10 I10 Resting Blood Pressure:: 110/80 [place] [employer] Hypertension Guidelines Peak Exercise Blood Pressure:: 140/86 Outcomes/Goals: Able to verbalize/achieve optimal blood pressure <130/80, Incorporates diet changes & exercise for blood pressure control by DC and Other additional outcomes/goals 30 day Reassessments:: Progressing Reassessment Notes & Comments:: pt encouraged to take his meds Tobacco Cessation Referral Smoking Cessation Referral:: No Individual Education/Counseling:: No Education Schedule Given:: Yes Psychosocial - 30-Day Assess VIsit Date of Eval: 01/26/24 Session #:: 6 History of previous Mental disease:: No Target Goals Target Goals Outcomes/Goals: See list Psychosocial Outcomes/Goals:: ID's personal stressors & 2 strategies to manage stress by discharge and Other Additional outcome/goals: Intervention/Plan: See List Interventions/Plan:: Assess stressors,coping strategies & signs of derpression on admission, Instruct/assist pt to develop coping & personal stress Mgt strategies, Refer to Behavioral Health if appropriate, Refer to Physician if appropriate, Instruct patient to recognize signs & symptoms of depression, Instruct patient to recog and Other additional plan/intervention 30-day Reassessments: 30 day Reassessments:: Met Psychosocial - 60-Day Assess Target Goals Target Goals Outcomes/Goals: See list Psychosocial Outcomes/Goals:: ID's personal stressors & 2 strategies to manage stress by discharge and Other Additional outcome/goals: Psychosocial - 90-Day Assess Target Goals Target Goals Psychosocial - Final Assessmen Target Goals Target Goals Nutrition - 90-Day Assessment Weight Mgt (Other Care) Height: 5 ft 8.5 in Weight:: 210 lb BMI: 31.4 Nutrition - Final Assessment Weight Mgt (Other Care) Height: 5 ft 8.5 in Weight:: 210 lb BMI: 31.4
[2024-01-26 07:31] VITALS: BP 110/80; BMI 31.4
== END 2024-02-25 23:59 ==
LOC: CR 08:00
PROVIDERS: PCP Family Medicine; Referring Provider Internal Medicine Cardiovascular Disease; Visit Provider Internal Medicine Cardiovascular Disease
DX: R53.83 Other fatigue (principal); R20.0 Anesthesia of skin; R20.2 Paresthesia of skin; R07.89 Other chest pain; I10 Essential (primary) hypertension
CPT/HCPCS: 93798

== ENCOUNTER 2024-03-12 11:00 | Outpatient (CLI) | payer OTHER, SELFPAY ==
[2024-02-28 07:29] VITALS: BMI 31.9
[2024-03-12 07:17] LABS: Absolute Lymphocyte Count 2.87 X10^3/uL (0.83-4.51); Basophil# 0.09 X10^3/uL; Basophil% 1.3 % (0-1); Eosinophil# 0.22 X10^3/uL; Eosinophils% 3.1 % (0-5); Hematocrit 51.6 % (40-54); Lymphocyte # 2.87 X10^3/ul (0.83-4.51); Lymphocyte % 40.5 % (19-41); Mean Corp Hgb Conc 32.9 g/dL (32-36); Mean Corpuscular Hgb 29.2 pg (27.0-32.0); Mean Corpuscular Volume 88.7 fL (80-94); Mean Platelet Vol. 9.6 fl (6.2-12.0); Monocyte# 0.88 X10^3/uL; Monocyte% 12.4 % (0-10); NRBC Flagged by Analyzer 0 % (0-5); Neutrophil % 42.4 % (47-70); Platelet Count 248 K/mm3 (150-450); RBC Distribution Width CV 12.9 % (11.6-14.6); RBC Distribution Width SD 41.5 fl (35.1-43.9); Red Blood Count 5.82 M/mm3 (4.6-6.2); White Blood Count 7.1 K/mm3 (4.4-11.0)
[2024-03-12 08:05] LABS: AST(SGOT) 27 U/L (15-37); Alanine Aminotransfer ALT/SGPT 45 U/L (16-61); Albumin, Serum 3.8 g/dL (3.2-5.0); Alkaline Phosphatase 39 U/L (45-117); Anion Gap 4 (5-15); BUN 26 mg/dL (7-18); BUN/Creat Ratio 24.3 RATIO (10-20); Bilirubin, Direct 0.21 mg/dL (0.00-0.30); Calcium,Total 9.3 mg/dL (8.5-10.1); Chloride 106 mmol/L (98-107); Cholesterol 167 mg/dL (200); Creatinine, Serum 1.07 mg/dL (0.70-1.30); EST Glomerular Filtration Rate 75 mL/min (>60); Est Glom Filt Rate - Afr Amer 91 mL/min (>60); Globulin 3.8 g/dL (2.2-4.2); Glucose 101 mg/dL (74-106); High Density Lipoprotein 49 mg/dL; Magnesium 2.3 mg/dL (1.6-2.6); Potassium 3.7 mmol/L (3.5-5.1); Protein, Total 7.6 g/dL (6.4-8.2); Sodium Level 139 mmol/L (136-145); Triglycerides 68 mg/dL; Very Low Density Lipoprotein 14 mg/dL (5-40)
--- NOTE | 2024-03-13 08:33 | HP.PCM_ITS ---
History and Physical Date of Admission: 03/29/24 This is a 58-year-old gentleman who presents for a cardiac catheterization. He does have a history of CAD with stent placement to his mid LAD, hypertension and aortic root dilatation. Patient had complaints of chest discomfort after a normal stress test in October 2023. He did undergo a cardiac catheterization on 12/11/2023 which demonstrated high-grade proximal to mid LAD disease and mild diffuse distal disease. He did undergo a successful drug-eluting stent to his mid LAD. From a cardiac standpoint, the patient is doing well. He denies any palpitations, chest pain, pressure or heaviness. He denies SOB, Orthopnea, and PND. He does not have bleeding issues; no blood in urine, stool or nosebleeds. He denies any decrease in energy level, myalgias, or claudication. He does not have edema, or sudden weight gain. He denies dizziness, lightheadedness, syncopal or near syncopal episodes, and headaches. 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 During cardiac rehab, patient had a significant run of ventricular tachycardia. 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 Smoking Status: Never smoker alcohol intake: current alcohol intake frequency: holidays/special occasions only ROS Const Const: Negative for fatigue, weakness, fever(s), headache(s), chills, frequent falls, weight gain or weight loss Eyes Eyes: Negative for blind spots, loss of peripheral vision, transient loss of vision, blurry vision, change in vision, double vision, floaters or tunnel vision ENT ENT: Negative for headache(s), dizziness, Nosebleed/epistaxis, balance problems or neck pain Cardio Chest Pain: No Palpitations: No Edema: None Muscle aches with walking: None Resp Respiratory: Negative for SOB with activity, SOB at rest or SOB orthopnea\SOB lying down GI GI: Negative nausea, vomiting, heartburn, bloating, vomiting blood/hematemesis, bright, red blood in stools or black,tarry stools Musc Musc: Negative for muscle aches/ myalgia, muscle weakness, joint pain or balance problems Neuro Neuro: Negative for dizziness, lightheadedness, near syncope, syncope, orthostatic symptoms, frequent falls, headache(s), weakness, blurry vision or double vision Manuel Hematologic/Lymphatic: Negative for easy bleeding or easy bruising Endo Endo: Negative for fatigue Cardiology Exam Const Appearance: cooperative, healthy appearing, comfortable, no acute distress and well developed Nutritional Appearance: obese Orientation: alert, awake and oriented x3 Head Head: normal to inspection Ears: hearing grossly normal bilaterally Nose: external nose normal Face and Sinus: face symmetric Eyes General: appearance normal, both eyes and all related structures Eyelids: eyelids normal Conjunctivae: conjunctivae normal Pupils: PERRL EOM: EOM intact bilaterally Neck Neck: normal visual inspection and trachea midline; Negative no JVD Carotids: Negative bruit Chest Chest inspection: normal inspection of the chest Auscultation: Bilateral: Clear to Auscultation Cardio Palpation: normal PMI Rate: regular rate Rhythm: regular rhythm Heart sounds: S1 normal and S2 normal; Negative rub, gallop or murmur GI GI: normal to inspection, soft and obese Neuro General: patient alert, patient awake, patient oriented x3 and CN's II-XI intact bilaterally Extremities Pulses: Normal: Right Posterior Tibial Pulse, Left Posterior Tibial Pulse, Right Radial Pulse and Left Radial Pulse Lower Extremity Edema: None: Bilateral Psych Psychological: normal affect Supplemental Info Supplemental Information Echocardiogram 11/16/2023: Interpretation Summary The estimated ejection fraction is 55 %. Stage 1 diastolic dysfunction. Normal valve structure. No change from previous echo. Stress test 11/17/2023: Stress protocol: Perfecto protocol. Resting EKG demonstrates. Normal sinus rhythm. Patient exercised according to standard Perfecto protocol Completed stage II With a total exercise time of 6 minutes Achieving a workload level of 7 METS The resting heart rate of 64 bpm Mari to a maximum heart rate of 136 bpm This is equivalent to 83% of the maximal age-predicted heart rate. The test was terminated patient had symptoms of fatigue and bilateral lower extremity discomfort and chest pain which resolved. The resting electrocardiogram reveals normal sinus rhythm During maximal stress and in recovery there is no significant ST?T abnormalities and no significant ventricular dysrhythmia. Myocardial perfusion protocol. [12 mCi ]of Technetium 99m Sestamibi was injected at rest. Following maximal stress, patient was given [36 mCi ]of Technetium 99m sestamibi was injected. Stress images were obtained stress and rest images were reconstructed and compared in the short axis vertical and horizontal long axis. Gated images were also obtained Perfusion SPECT analysis: Review of the images demonstrate normal uptake of sestamibi at rest, post stress images demonstrate similar uptake of sestamibi to the resting images, homogeneous tracer uptake With no evidence of reversible myocardial ischemia. Reduced tracer Gated SPECT analysis: The gated ejection fraction is 65% Normal LV wall motion and normal LV systolic function Conclusion: Negative treadmill sestamibi myocardial perfusion study for reversible myocardial ischemia Normal LV systolic function. Cardiac catheterization 12/11/2023: CONCLUSIONS high-grade proximal to mid LAD disease and mild diffuse distal disease RECOMMENDATIONS Referred for immediate PCI DESCRIPTION OF PROCEDURE The patient arrived to the procedure lab. The risks and benefits of the procedure as well as a full description of our services here and current unavailability of surgical backup were fully explained to the patient and/or their significant other prior to the catheterization. The Timeout was completed, verifying the correct patient and procedure. The patient's procedural site was prepped and draped in the usual fashion. Local anesthetic was given subcutaneously to right radial region with Lidocaine 2%. Using a modified Seldinger technique, arterial access was obtained via the right radial artery, a 6Fr sheath was inserted. Right upper extremity selective angiography was then performed in single view. Left Coronary Artery selective angiography was performed in multiple views using a 5 Fr. 4.0 Cabins catheter. Right Coronary Artery selective angiography was then performed in multiple views using a 5 Fr. JL 5 catheter.The arterial sheath was pulled and a TR Band was applied for hemostasis - 10CC AIR CORONARY ANGIOGRAPHY DOMINANCE: Right Dominant LEFT HEART ASSESSMENT Left Ventricular Ejection Fraction: by Echo 55 % Normal LV wall motion Normal Left Ventricular systolic function LEFT MAIN: Angiographically normal LEFT ANTERIOR DESCENDING ARTERY: MID LAD: 80 % Stenosis DISTAL LAD: Diffusely diseased up to 75 % CIRCUMFLEX ARTERY: Angiographically normal RIGHT CORONARY ARTERY: Angiographically normal Assessment and Plan Assessment and Plan (1) CAD (coronary artery disease): Status: Acute Plan: Patient has a history of coronary artery disease with recent stent placement on 12/11/2023 to his mid LAD. His most recent echocardiogram from 11/16/2023 demonstrated ejection fraction of 55%, and stage I diastolic dysfunction. His cardiac catheterization from 12/11/2023 demonstrated 80% stenosis in his mid LAD, and diffusely diseased up to 75 % in his distal LAD. During cardiac rehab, patient had a significant run of ventricular tachycardia. Will proceed with a cardiac catheterization tor further assess this. Depending on results, further recommendations will be made. (2) Ventricular Tachycardia: During cardiac rehab, patient had a significant run of ventricular tachycardia. Will proceed with a cardiac catheterization tor further assess this. Depending on results, further recommendations will be made.
--- NOTE | 2024-03-26 08:11 | CR.ITP_ITS ---
Nutrition - Initial Assessment Weight Mgt (Other Care) Height: 5 ft 8 in Weight:: 210 lb BMI: 31.9 Psychosocial - Initial Assess Target Goals Target Goals Referral to Behavioral Health PS - Interventions: Yes: Attend Stress Management Classes and No: Referral to Behavioral Health if PHQ-9 score >9:, No: Referral to [facility] and No: Referral to Physician if PHQ-9 if score is 5-9: Patient Health Questionnaire PHQ-9 Screening 90-Day Re-eval Assessment: 1. Little interest or pleasure in doing things: Several days 2. Feeling down, depressed, or hopeless: Several days 3. Trouble falling or staying asleep, or sleeping too much: Several days 4. Feeling tired or having little energy: Several days 5. Poor appetite or overeating: Not at all 6. Feeling bad about yourself -- or that you are a failure or have let yourself or your family down: Not at all 7. Trouble concentrating on things, such as reading the newspaper or watching television: Not at all 8. Moving or speaking so slowly that other people could have noticed. Or the opposite - being so fidgety or restless that you have been moving around a lot more than usual: Not at all 9. Thoughts that you would be better off , or of hurting yourself in some way: Not at all How difficult have these problems made it for you to do your work, take care of things at home, or get along with other people?: Not difficult at all Total Score: 4 Self-Efficacy 6-Item Scale 90-Day Re-eval Assessment: We would like to know how confident you are in doing certain activities. Please select your confidence level for: Fatigue Select Number: 10 Physical Discomfort or Pain Select Number: 10 Emotional Distress Select Number: 10 Other Symptoms or Health Problems Select Number: 10 Different Tasks and Activities Select Number: 10 Medication Select Number: 10 Total Score:: 10 Nutrition Survey Nutrition Survey Instructions Scoring Instructions Exercise - 60-day Assessment Visit Date of Eval: 03/26/24 Session #:: 19 Comments:: Patient has only attended 5 sessions in the past 30-day period. He was placed on medical hold on 03/13/2024 pending a heart cath. and then has complained on joint and leg pain possibly due to change in his statin medications. Physician Prescribed Exercise Modalities: Treadmill, Airdyne and NuStep Frequency: 3x/week for 12 weeks [36 sessions] Intensity: 60-80% of age predicted maximum heart rate reserve Duration: 30 - 45 minutes Current METSs:: 7.5 Target Heart Rate:: 122-137 Current RPE:: 12-13 Maximum Excercise HR:: 124 Resting Blood Pressure: 116/72 Maximum Exercise Blood Pressure: 134/82 EKG Type: NSR to sinus tach without ectopy. Outcomes & Goals Goals:: Verbalizes understanding of THR, RPE & goal METS by session 6, Documents in home exercise log/reports 30 min aerobic 5 day/wk by DC and Demonstrates accurate pulse taking by DC Intervention & Plan Exercise Program Goals: Instruct on personal THR & RPE, Instruct on MET level & personal MET goal, Show patient to take own pulse /validate performance until accurate and Instruct on home exercise 30-day Reassessments 30 day Reassessments:: Met Physical Activity Home Exercise Physical Activity - Home Exercise: Safe Exercise, Warm-up, Self-monitoring, Cool-Down, Home Exercise > 30 min Daily and Sitting Time <3 hours/daily Outcomes & Goals Outcomes/Goals: Demonstrates correct Warm-up/exercise Cool-Down (S3) if = 2.5 METs, Verbalizes symptoms of exercise intolerance by Session 3 (S3) and Demonstrate safe equipment use (S3) & follows exercise prescrition (6) Intervention & Plan Plan/Intervention: Instruct warm-up & cool-down if exercising at > 2 METs, Instruct on symptoms of exercise intolerance & actions to take, Instruct & monitor on saf and Assess intial functional capacity & safety risk 30-day Reassessments 30 day Reassessments:: Met Nutrition - 30-Day Assessment Weight Mgt (Other Care) Height: 5 ft 8 in Weight:: 210 lb BMI: 31.9 Nutrition - 60-Day Assessment Weight Mgt (Other Care) Height: 5 ft 8 in Weight:: 210 lb BMI: 31.9 Core - 90 Day Assessment Visit Date of Eval: 03/26/24 Session #:: 19 Medication Compliance Preventative Medication(s):: Aspirin, Clopidogrel/P2Y12 inhibit, Statin/lipid and Beta jb H/O mental health issues: depression, anxiety, or addiction?: No Doesn?t believe in the benefits of treatment?: No Believes medications are unnecessary or harmful?: No Has a concern about medication side effects?: Yes (claims to be having a reaction to statin medication) Expresses concern over the cost of medications?: No Outcomes/Goals: Verbalizes medications,desired effect & common side effects @ DC, Pt self-reports following medication regimen and Keeps card in wallet w/medications listed by DC Interventions/plans: Instruct on medication effects & side effects, Review medication list w/patient every two weeks and Instruct importance of taking meds as ordered & assist problem solving 30-day Reassessments:: Progressing Tobacco Use Tobacco Use: Non-smoker Hypertension Hypertension Diagnosis:: Hypertension ICD-10 I10 Resting Blood Pressure:: 116/72 [place] [employer] Hypertension Guidelines Peak Exercise Blood Pressure:: 140/90 Outcomes/Goals: Able to verbalize/achieve optimal blood pressure <130/80 and Incorporates diet changes & exercise for blood pressure control by DC Interventions/plan: Instruct on optimal blood pressure, hypertension & medi cations and Instruct on effects of sodium, alcohol, stress, exercise &hypertension 30 day Reassessments:: Met Tobacco Cessation Referral Smoking Cessation Referral:: No Individual Education/Counseling:: No Education Schedule Given:: Yes Psychosocial - 30-Day Assess Target Goals Target Goals Referral to Behavioral Health PS - Interventions: Yes: Attend Stress Management Classes and No: Referral to Behavioral Health if PHQ-9 score >9:, No: Referral to [facility] and No: Referral to Physician if PHQ-9 if score is 5-9: Psychosocial - 60-Day Assess Target Goals Target Goals Referral to Behavioral Health PS - Interventions: Yes: Attend Stress Management Classes and No: Referral to Behavioral Health if PHQ-9 score >9:, No: Referral to [facility] and No: Referral to Physician if PHQ-9 if score is 5-9: Psychosocial - 90-Day Assess VIsit Date of Eval: 03/26/24 Session #:: 19 Not Applicable: Yes History of previous Mental disease:: No Target Goals Target Goals Psychosocial Test Tool Used:: PHQ-9 Questionnaire phq-9 Severity Referral to Behavioral Health PS - Interventions: Yes: Attend Stress Management Classes and No: Referral to Behavioral Health if PHQ-9 score >9:, No: Referral to [facility] and No: Referral to Physician if PHQ-9 if score is 5-9: Outcomes/Goals: See list Psychosocial Outcomes/Goals:: ID's personal stressors & 2 strategies to manage stress by discharge Intervention/Plan: See List Interventions/Plan:: Assess stressors,coping strategies & signs of derpression on admission, Instruct/assist pt to develop coping & personal stress Mgt s duartetegipaul, Instruct patient to recognize signs & symptoms of depression and Instruct patient to recog 30-day Reassessments: 30 day Reassessments:: Met Psychosocial - Final Assessmen Target Goals Target Goals Referral to Behavioral Health PS - Interventions: Yes: Attend Stress Management Classes and No: Referral to Behavioral Health if PHQ-9 score >9:, No: Referral to [facility] and No: Referral to Physician if PHQ-9 if score is 5-9: Nutrition - 90-Day Assessment Program Goals Nutrition Program Goals Patient has diagnosis of Hyperlipidemia (ICD E78)?: Yes Visit Date of Eval: 03/26/24 Session #:: 19 Cholesterol/Lipids (Other Core Measures) Determine presence & major risk factors that modify LDL goal: Hypertension or hypertensive medication, Family history of premature CHD in Male < 55 years: female <65 yearsFa and Age men > 45 years; women >/= 55 years Outcomes/Goals: Verbalizes symptoms of angina & response by session 3. and Pt independently manages Intervention/Plan: Instruct on personal lipid levels & lipid goals/NCEP guidelines and Instruct on cholesterol Referral to dietitian:: No 30-day Reassessments:: Progressing Diabetes (Other Core Measures) Diabetes Type: Not Applicable Weight Mgt (Other Care) Not Applicable: No Height: 5 ft 8 in Weight:: 210 lb BMI: 31.9 Diagnosis Overweight/Obesity BMI> 30% ICD-10 E66: Yes Diagnosis High BMI/Morbid Obesity BMI> 35% ICD-10 Z68: No Outcomes/Goals: Pt sets, maintains & shows weight loss goal & trend during rehab Intervention/Plan: Instruct on ideal BMI & set weight loss goal w/patient, Assist pt to ID & incorporate diet changes for weight loss by S9, Refer to Structured Weight Loss program as appropriate and Encourage goal of using 250- 300dcal per session for weight loss 30 day Reassessments:: Not Met Reassessment Notes & Comments:: Patient has not lost any weight since beginning cardiac rehab. Healthy Eating Habits Will attend diet classes:: Yes Outcomes/Goals:: Consume diet rich in vegs,fruits,whole grain/high fiber,fish,lean meat and Limit sat/trans fats,cholesterol & added salts & sugars Intervention/Plan:: Assess current eating habits 30-day Reassessments:: Not Met Education Gave educational materials for:: Healthy eating Nutrition - Final Assessment Weight Mgt (Other Care) Height: 5 ft 8 in Weight:: 210 lb BMI: 31.9
[2024-03-26 08:19] VITALS: BP 116/72; BMI 31.9
== END 2024-03-12 23:59 | disposition home or self-care (01) ==
LOC: LAB 10-17 09:55 → CLSP 10-17 09:55
PROVIDERS: Nurse Practitioner Gerontology; PCP Family Medicine; Referring Provider Internal Medicine Cardiovascular Disease; Visit Provider Internal Medicine Cardiovascular Disease
DX: Z53.9 Procedure and treatment not carried out, unspecified reason (principal); I25.10 Atherosclerotic heart disease of native coronary artery without angina pectoris; R00.0 Tachycardia, unspecified
CPT/HCPCS: 36415; 80048; 80061; 80076; 83735; 85025

== ENCOUNTER 2024-03-13 07:13 | Day surgery (SDC) | payer OTHER, SELFPAY ==
[2024-02-28 07:29] VITALS: BMI 31.9
[2024-03-13 07:15] VITALS: BP 134/91; PULSE 74; RESP 18; TEMP 36.4; O2SAT 98; BMI 31.9
--- NOTE | 2024-03-13 07:25 | RAD_ITS ---
INDICATION: chest pain EXAMINATION/TECHNIQUE: X-RAY - XR Chest 1 View AP portable. 7:30 AM COMPARISON: 11/16/2023 FINDINGS: LINES/DEVICES: None. LUNGS: No consolidation. No pneumothorax. MEDIASTINUM: The aorta is atherosclerotic. CARDIAC SILHOUETTE: Not enlarged. BONES AND SOFT TISSUES: No acute abnormalities. Degenerative changes in the dorsal spine. RAD/Chest 1 View (Portable) IMPRESSION: No evidence of active intrathoracic disease. Electronically Signed: Ximena Adams MD at 7:51 EDT ,
--- NOTE | 2024-03-13 07:26 | EDS_ITS ---
HPI History of Present Illness Chief Complaint: Numb/Ting Narrative Narrative: 58-year-old male past medical history of coronary artery disease, had a stent placed in November, approximately 4 months ago presents with left arm numbness and tingling and axillary discomfort that he has had previously with his coronary artery disease. It is very similar to the reasons why he had to have his stent placed. He relates history that he was in cardiac rehab on Monday, and they saw something which means that he is supposed to be cathed again in early March, approximately 2 weeks from now. He had been experiencing the symptoms previously and had called Dr. Mendoza's office. His symptoms began in the middle the night, intermittently. He is already taken aspirin, he took 4 aspirin yesterday because he had a headache, then 4 again this morning. He is concerned because he has had these feelings in the past and is concerned about his heart. [facility] Medical History COVID-19 (10/21/21) Essential (primary) hypertension PAC (premature atrial contraction) Home Medications ascorbic acid (vitamin C) 1,000 mg tablet 1 g PO DAILY vitamin 05/05/23 [History Last Taken Unknown] hydrochlorothiazide 25 mg tablet 25 mg PO DAILY diuretic #90 tabs 11/06/23 [Rx Last Taken Unknown] aspirin 81 mg tablet,delayed release (Adult Aspirin Regimen) 81 mg PO DAILY 11/28/23 [History Last Taken 12/11/23] clopidogrel 75 mg tablet 75 mg PO .COMPLEX #90 tabs 12/12/23 [Rx Last Taken Unknown] coenzyme Q10 100 mg capsule 100 mg PO DAILY take with rosuvastatin to prevent muscle aches #90 caps 01/19/24 [Rx Last Taken Unknown] ezetimibe 10 mg tablet 10 mg PO DAILY #30 tabs 02/01/24 [Rx Last Taken Unknown] metoprolol succinate 25 mg tablet,extended release 24 hr 50 mg (2 x 25 mg) PO DAILY #90 tabs 03/11/24 [Rx Last Taken Unknown] Allergy/AdvReac Type Severity Reaction Status Date / Time rosuvastatin AdvReac Severe Severe Verified 03/13/24 07:15 myalgias arms, legs, back, hands atorvastatin AdvReac Intermediate Severe Verified 03/13/24 07:15 myalgias in arms and leg Family History Father Myocardial infarction [place] age 39 CAD (coronary artery disease) CABG age 71 Surgical History Stented coronary artery (12/11/23) Social History household members: spouse number of children: 2 current occupational status: employed 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 HEENT: No sore throat. No neck pain. No loss of vision. No rhinorrhea. Cardiovascular: No chest pain. Axillary discomfort. No palpitations. No pedal edema. Respiratory: No cough, no shortness of breath. Abdominal: No abdominal pain. No nausea. No vomiting. Genitourinary: No dysuria. No hematuria. Musculoskeletal: No myalgias. No arthralgias. Neurologic: No headaches. No dizziness. No lightheadedness. Positive paresthesias of left arm. Skin: No rash. No change in color. Psychiatric: No depression. No anxiety. EXAM Physical Exam Narrative Exam Narrative: Afebrile. Vital signs noted. HEENT: Normocephalic. Atraumatic. PERRL, EOMI. Neck soft and supple. No point tenderness or step off. Cardiovascular: Regular rate and rhythm. No murmurs, rubs, or gallops ap preciated. Respiratory: No tachypnea. Lungs clear to auscultation bilaterally. Gastrointestinal: Abdomen soft, nontender, with normoactive bowel sounds. No rebound or guarding. Neurological: Awake. Alert. Nonfocal, nonlateralizing. Skin: No rash. Normal color. No pallor. Musculoskeletal: No pedal edema. Full range of motion extremities. Const Vital Signs: 03/13/24 07:15 03/13/24 07:30 03/13/24 07:32 Temperature 97.6 F L Temperature Source Temporal Pulse Rate 74 Respiratory Rate 18 Respiratory Effort Normal Non-Labored Blood Pressure 134/91 H Blood Pressure Mean 105 Pulse Ox 98 Oxygen Delivery Method Room Air Room Air 03/13/24 08:13 Temperature Temperature Source Pulse Rate 65 Respiratory Rate 16 Respiratory Effort Blood Pressure 139/90 H Blood Pressure Mean 106 Pulse Ox 99 Oxygen Delivery Method Room Air MDM MDM MDM Narrative Medical decision making narrative: In the differential diagnosis is acute coronary syndrome versus pulmonary embolism versus paresthesias versus stroke. History and physical does not support stroke diagnosis as is nonfocal, and is merely paresthesias of the left arm. I have low suspicion for aortic dissection as he has equal pulses radially. I reviewed his prior records and he had laboratory work drawn yesterday in the evening as well. I reviewed these and found that he had a hemoglobin of 17, but were essentially otherwise unremarkable. Chest pain workup was pursued. He is already taken aspirin within the last 24 hours. EKG obtained and interpreted by myself independently as normal sinus rhythm at 65 bpm without ectopy or acute ST changes. No STEMI. No significant change from EKG dated November 2023. Chest x-ray 1 view obtained and interpreted by myself independently shows no evidence of an acute process, no pneumothorax, no pneumonia. I do not feel antibiotics are indicated. I reviewed the radiology report which confirms my independent interpretation. I reviewed his laboratory work and he has normal white count of 7.0, hemoglobin still slightly hemoconcentrated at 16.9 with hematocrit 51.3, platelet count normal at 229. Review of his electrolyte panel shows potassium low at 3.2 I ordered 40 mill equivalents orally for replacement. BUN slightly elevated at 21 with a normal creatinine of 1.13. Glucose is appropriately elevated at 118. Anion gap low at 3. Initial high-sensitivity troponin is less than 3. The thought process was that if his second troponin is also negative, that I will discuss patient with Dr. Mendoza for possible discharge home. Before the second troponin return, I was able to speak with cardiology, who has seen the patient in the emergency department, and decided to take him to the catheterization lab nonemergently. History & Record Review Discussion w/independent historian: Patient Additional record(s) reviewed:: Prior outpatient record and Prior labs Lab Data Attestation: I reviewed the patient's lab results. Labs: Laboratory Results - last 24 hr 03/13/24 07:26 WBC 7.0 RBC 5.80 Hgb 16.9 H Hct 51.3 MCV 88.4 MCH 29.1 MCHC 32.9 RDW Std Deviation 41.1 RDW Coeff of Raiza 12.6 Plt Count 229 MPV 9.5 Immature Gran % (Auto) 0.100 Neut % (Auto) 45.0 L Lymph % (Auto) 40.4 Emery % (Auto) 11.3 H Eos % (Auto) 2.3 Baso % (Auto) 0.9 Absolute Neuts (auto) 3.2 Absolute Lymphs (auto) 2.83 Nucleated RBC % 0 Sodium 138 Potassium 3.2 L Chloride 107 Carbon Dioxide 28.0 Anion Gap 3 L BUN 21 H Creatinine 1.13 Estim Creat Clear Calc 79.82 Est GFR (MDRD) Af Amer 86 Est GFR (MDRD) Non-Af 71 BUN/Creatinine Ratio 18.6 Glucose 118 H Calcium 9.2 Troponin I High Sens < 3 L Radiography Diagnostic Testing: Clinical Impression(s) from Imaging Studies Chest X-Ray 03/13/24 07:25 IMPRESSION: No evidence of active intrathoracic disease. Electronically Signed: Ximena Adams MD at 7:51 EDT , Discharge Plan Triage Chief Complaint: Numb/Ting ED Provider: Eloy Reyes Dx/Rx/DC Orders Prescriptions: No Action ascorbic acid (vitamin C) 1,000 mg tablet 1 g PO DAILY hydrochlorothiazide 25 mg tablet 25 mg PO DAILY Qty: 90 3RF aspirin [Adult Aspirin Regimen] 81 mg tablet,delayed release (DR/EC) 81 mg PO DAILY clopidogrel 75 mg tablet 75 mg PO .COMPLEX Qty: 90 3RF Rx Instructions: 75 mg orally 4 tablets by mouth all at once tonight for loading dose, then 1 tablet by mouth daily; coenzyme Q10 100 mg capsule 100 mg PO DAILY Qty: 90 3RF ezetimibe 10 mg tablet 10 mg PO DAILY Qty: 30 11RF metoprolol succinate 25 mg tablet extended release 24 hr 50 mg PO DAILY Qty: 90 3RF Primary Care Provider: Bakari Grant Referrals: Bakari Grant DO [Primary Care Provider] -
[2024-03-13 07:37] LABS: Absolute Lymphocyte Count 2.83 X10^3/uL (0.83-4.51); Absolute Neutrophil Count 3.2 X10^3/uL (2.0-7.7); Basophil# 0.06 X10^3/uL; Basophil% 0.9 % (0-1); Eosinophil# 0.16 X10^3/uL; Eosinophils% 2.3 % (0-5); Hematocrit 51.3 % (40-54); Hemoglobin 16.9 g/dL (13.0-16.5); Lymphocyte # 2.83 X10^3/ul (0.83-4.51); Lymphocyte % 40.4 % (19-41); Mean Corp Hgb Conc 32.9 g/dL (32-36); Mean Corpuscular Hgb 29.1 pg (27.0-32.0); Mean Corpuscular Volume 88.4 fL (80-94); Mean Platelet Vol. 9.5 fl (6.2-12.0); Monocyte# 0.79 X10^3/uL; Monocyte% 11.3 % (0-10); NRBC Flagged by Analyzer 0 % (0-5); Neutrophil # 3.16 X10^3/uL (2.7-7.7); Platelet Count 229 K/mm3 (150-450); RBC Distribution Width CV 12.6 % (11.6-14.6); RBC Distribution Width SD 41.1 fl (35.1-43.9)
[2024-03-13 07:52] LABS: Anion Gap 3 (5-15); BUN 21 mg/dL (7-18); BUN/Creat Ratio 18.6 RATIO (10-20); Calcium,Total 9.2 mg/dL (8.5-10.1); Chloride 107 mmol/L (98-107); Creatinine, Serum 1.13 mg/dL (0.70-1.30); EST Glomerular Filtration Rate 71 mL/min (>60); Est Glom Filt Rate - Afr Amer 86 mL/min (>60); Estimated Creatinine Clearance 79.82 ml/min; Glucose 118 mg/dL (74-106); Potassium 3.2 mmol/L (3.5-5.1); Sodium Level 138 mmol/L (136-145); Troponin-I HS (w/2H Reflex) < 3 pg/mL (3.0-78.0)
[2024-03-13] MEDS: Potassium Chloride Oral Tablet 20 MEQ 40 MEQ PO (08:11)
[2024-03-13 08:13] VITALS: BP 139/90; PULSE 65; RESP 16; O2SAT 99
[2024-03-13 09:00] VITALS: BP 153/95; PULSE 62; RESP 18; O2SAT 98
[2024-03-13 09:29] LABS: Reflex Troponin-HS? (from REC) Y
[2024-03-13 10:00] VITALS: BP 146/92; PULSE 63; RESP 18; TEMP 36.6; O2SAT 99
--- NOTE | 2024-03-13 11:55 | CL.D_ITS ---
Patient Name: JIMENEZ ANAYA Study Date: 03/13/2024 Performing: Boone Mendoza MD Ht: 68 inches 172.72 cm : 1965 Wt: 210.6 lbs 95.39 kg Age: 58 Gender: male BSA: 2.09 PROCEDURE(S) PERFORMED [id number])LHC/COR/LV CLINICAL PROFILE AND INDICATIONS Indications: Suspected CAD Heart Failure: None Stress/Imaging Stress/Image Study Performed: No CAD Presentations: Unstable angina. CONCLUSIONS Previously placed stent is patent with mild distal disease. Preserved ejection fraction. RECOMMENDATIONS Medical therapy. Would add Ranexa 500 mg twice a day to his regimen. DESCRIPTION OF PROCEDURE The patient arrived to the procedure lab. The risks and benefits of the procedure as well as a full description of our services here and current unavailability of surgical backup were fully explained to the patient and/or their significant other prior to the catheterization. The Timeout was completed, verifying the correct patient and procedure. The patient's procedural site was prepped and draped in the usual fashion. Local anesthetic was given subcutaneously to right radial region with Lidocaine 2%. Using a modified Seldinger technique, arterial access was obtained via the right radial artery, a 6Fr sheath was inserted. Left Coronary Artery selective angiography was performed in multiple views using a 5 Fr. 4.0 Tatum catheter. Right Coronary Artery selective angiography was then performed in multiple views using a 5 Fr. 4.0 Tatum catheter. Left Ventriculography was performed in JOHN projection using a 5 Fr. Pigtail catheter. LV to AO pullback pressures were then recorded.The arterial sheath was pulled and a TR Band was applied for hemostasis CORONARY ANGIOGRAPHY DOMINANCE: Right Dominant LEFT HEART ASSESSMENT Left Ventricular Ejection Fraction: by LV Gram 60 % Normal LV wall motion Normal Left Ventricular systolic function LEFT MAIN: Angiographically normal LEFT ANTERIOR DESCENDING ARTERY: Left anterior descending artery was a medium size vessel. It had an mid segment previously placed stent which is patent. Distally the vessel was mildly narrowed but with no focal high-grade stenosis. CIRCUMFLEX ARTERY: Angiographically normal RIGHT CORONARY ARTERY: Angiographically normal COMPLICATIONS No Complications PROCEDURE MEDICATIONS Fentanyl 50 mcg IV Versed 1 mg IV Versed 1 mg IV Versed 1 mg IV Oxygen: 2 L/min via nasal cannula Heparin given IA 03/13/2024 11:27:32 Verapamil 2.5mg, Ntg 100mcgs, 3000 units of Heparin given IA 03/13/2024 11:27:32 SUMMARY OF HEMODYNAMIC DATA Time AIR REST ECG 10:44:23 Art 110/73 (87) 11:30:19 LV 95/9, 23 11:41:22 LV 106/7, 20 11:41:30 LV 107/9, 12 11:42:15 LVp 107/7, 14 11:42:18 AOp 110/71 (90) 11:42:25 11:51:48 Signed By Boone Mendoza MD On 03/13/2024 11:54:48 Boone Mendoza MD
== END 2024-03-13 13:35 | disposition home or self-care (01) ==
LOC: ED 07:38 → CLINP 10:43 → CLSP 10:43
PROVIDERS: Emergency Provider Emergency Medicine; PCP Family Medicine; Visit Provider Internal Medicine Cardiovascular Disease
DX: I25.110 Atherosclerotic heart disease of native coronary artery with unstable angina pectoris (principal); R20.0 Anesthesia of skin; R20.2 Paresthesia of skin; I10 Essential (primary) hypertension; Z95.5 Presence of coronary angioplasty implant and graft; Z79.899 Other long term (current) drug therapy
CPT/HCPCS: 71045; 80048; 84484; 85025; 93005; 93458; 99152; 99153; 99285; J7040; Q9967; A4216; C1769; C1894

== ENCOUNTER 2024-03-15 08:00 | Outpatient (RCR) | payer OTHER, SELFPAY ==
[2024-01-26 07:31] VITALS: BMI 31.4
[2024-02-26 00:49] VITALS: BP 110/80
--- NOTE | 2024-02-28 07:21 | CR.ITP_ITS ---
Nutrition - Initial Assessment Weight Mgt (Other Care) Height: 5 ft 8 in Weight:: 210 lb BMI: 31.9 Psychosocial - Initial Assess Target Goals Target Goals Referral to Behavioral Health PS - Interventions: Yes: Attend Stress Management Classes and No: Referral to Behavioral Health if PHQ-9 score >9:, No: Referral to [facility] and No: Referral to Physician if PHQ-9 if score is 5-9: Patient Health Questionnaire PHQ-9 Screening 60-Day Re-eval Assessment: 1. Little interest or pleasure in doing things: Several days 2. Feeling down, depressed, or hopeless: Not at all 3. Trouble falling or staying asleep, or sleeping too much: Not at all 4. Feeling tired or having little energy: Several days 5. Poor appetite or overeating: Not at all 6. Feeling bad about yourself -- or that you are a failure or have let yourself or your family down: Not at all 7. Trouble concentrating on things, such as reading the newspaper or watching television: Not at all 8. Moving or speaking so slowly that other people could have noticed. Or the opposite - being so fidgety or restless that you have been moving around a lot more than usual: Not at all 9. Thoughts that you would be better off , or of hurting yourself in some way: Not at all How difficult have these problems made it for you to do your work, take care of things at home, or get along with other people?: Not difficult at all Total Score: 2 Self-Efficacy 6-Item Scale 60-Day Re-eval Assessment: We would like to know how confident you are in doing certain activities. Please select your confidence level for: Fatigue Select Number: 10 Physical Discomfort or Pain Select Number: 10 Emotional Distress Select Number: 9 Other Symptoms or Health Problems Select Number: 10 Different Tasks and Activities Select Number: 10 Medication Select Number: 10 Total Score:: 9 Nutrition Survey Nutrition Survey Instructions Scoring Instructions Exercise - 60-day Assessment Visit Date of Eval: 02/28/24 Session #:: 19 Physician Prescribed Exercise Modalities: Treadmill, Airdyne and NuStep Frequency: 3x/week for 12 weeks [36 sessions] Intensity: 60-80% of age predicted maximum heart rate reserve Duration: 30 - 45 minutes Current METSs:: 6.3 Target Heart Rate:: 97-113 Current RPE:: 12-13 Maximum Excercise HR:: 116 Resting Blood Pressure: 108/64 Maximum Exercise Blood Pressure: 152/84 (on the Airdyne Bike) EKG Type: NSR to sinus tach with occasional PVCs Current Physical Activity or Exercising minutes: 50:20 Outcomes & Goals Goals:: Verbalizes understanding of THR, RPE & goal METS by session 6, Documents in home exercise log/reports 30 min aerobic 5 day/wk by DC and Demonstrates accurate pulse taking by DC Intervention & Plan Exercise Program Goals: Instruct on personal THR & RPE, Instruct on MET level & personal MET goal, Show patient to take own pulse /validate performance until accurate and Instruct on home exercise 30-day Reassessments 30 day Reassessments:: Met Physical Activity Home Exercise Physical Activity - Home Exercise: Safe Exercise, Warm-up, Self-monitoring, Cool-Down, Home Exercise > 30 min Daily and Sitting Time <3 hours/daily Outcomes & Goals Outcomes/Goals: Demonstrates correct Warm-up/exercise Cool-Down (S3) if = 2.5 METs, Verbalizes symptoms of exercise intolerance by Session 3 (S3) and Demonstrate safe equipment use (S3) & follows exercise prescrition (6) Intervention & Plan Plan/Intervention: Instruct warm-up & cool-down if exercising at > 2 METs, Instruct on symptoms of exercise intolerance & actions to take, Instruct & monitor on saf and Assess intial functional capacity & safety risk 30-day Reassessments 30 day Reassessments:: Met Nutrition - 30-Day Assessment Weight Mgt (Other Care) Height: 5 ft 8 in Weight:: 210 lb BMI: 31.9 Nutrition - 60-Day Assessment Program Goals Nutrition Program Goals Patient has diagnosis of Hyperlipidemia (ICD E78)?: Yes Visit Date of Eval: 02/28/24 Session #:: 19 Cholesterol/Lipids (Other Core Measures) Determine presence & major risk factors that modify LDL goal: Hypertension or hypertensive medication Outcomes/Goals: Pt IDs own risk factors & lifestyle modifications by Session 10, Verbalizes symptoms of angina & response by session 3. and Pt independently manages Intervention/Plan: Instruct on personal lipid levels & lipid goals/NCEP guidelines and Instruct on cholesterol Referral to dietitian:: No 30-day Reassessments:: Met Diabetes (Other Core Measures) Diabetes Type: Not Applicable Insulin dependent injection/pump?: No Non-Insulin Dependent?: No Do you monitor your blood sugar at home?: No Referral to Diabetic Clinic:: No Weight Mgt (Other Care) Height: 5 ft 8 in Weight:: 210 lb BMI: 31.9 Diagnosis Overweight/Obesity BMI> 30% ICD-10 E66: Yes Diagnosis High BMI/Morbid Obesity BMI> 35% ICD-10 Z68: No Outcomes/Goals: Pt sets, maintains & shows weight loss goal & trend during rehab Intervention/Plan: Instruct on ideal BMI & set weight loss goal w/patient and Refer to Structured Weight Loss program as appropriate 30 day Reassessments:: Not Met Reassessment Notes & Comments:: No weight loss since starting the program. Healthy Eating Habits Will attend diet classes:: Yes Outcomes/Goals:: Consume diet rich in vegs,fruits,whole grain/high fiber,fish,lean meat and Limit sat/trans fats,cholesterol & added salts & sugars Intervention/Plan:: Assess current eating habits 30-day Reassessments:: Progressing Education Gave educational materials for:: Healthy eating Core - 60-Day Assessment Visit Date of Eval: 02/28/24 Session #:: 19 Medication Compliance Preventative Medication(s):: Aspirin, Clopidogrel/P2Y12 inhibit, Statin/lipid and Beta jb H/O mental health issues: depression, anxiety, or addiction?: No Doesn?t believe in the benefits of treatment?: No Believes medications are unnecessary or harmful?: No Has a concern about medication side effects?: No Expresses concern over the cost of medications?: No Outcomes/Goals: Verbalizes medications,desired effect & common side effects @ DC, Pt self-reports following medication regimen and Keeps card in wallet w/medications listed by DC Interventions/plans: Instruct on medication effects & side effects, Review medication list w/patient every two weeks and Instruct importance of taking meds as ordered & assist problem solving 30-day Reassessments:: Met Tobacco Use Tobacco Use: Non-smoker Hypertension Hypertension Diagnosis:: Hypertension ICD-10 I10 Resting Blood Pressure:: 108/64 (controlled with his current medications) [place] [employer] Hypertension Guidelines Peak Exercise Blood Pressure:: 152/84 Interventions/plan: Instruct on optimal blood pressure, hypertension & medications and Instruct on effects of sodium, alcohol, stress, exercise &hypertension 30 day Reassessments:: Met Tobacco Cessation Referral Smoking Cessation Referral:: No Individual Education/Counseling:: No Education Schedule Given:: Yes Psychosocial - 30-Day Assess Target Goals Target Goals Referral to Behavioral Health PS - Interventions: Yes: Attend Stress Management Classes and No: Referral to Behavioral Health if PHQ-9 score >9:, No: Referral to [facility] and No: Referral to Physician if PHQ-9 if score is 5-9: Outcomes/Goals: See list Psychosocial Outcomes/Goals:: ID's personal stressors & 2 strategies to manage stress by discharge Psychosocial - 60-Day Assess VIsit Date of Eval: 02/28/24 Session #:: 19 Not Applicable: Yes History of previous Mental disease:: No Target Goals Target Goals Psychosocial Test Tool Used:: PHQ-9 Questionnaire phq-9 Severity Referral to Behavioral Health PS - Interventions: Yes: Attend Stress Management Classes and No: Referral to Behavioral Health if PHQ-9 score >9:, No: Referral to [facility] and No: Referral to Physician if PHQ-9 if score is 5-9: Outcomes/Goals: See list Psychosocial Outcomes/Goals:: ID's personal stressors & 2 strategies to manage stress by discharge Intervention/Plan: See List Interventions/Plan:: Assess stressors,coping strategies & signs of derpression on admission, Instruct/assist pt to develop coping & personal stress Mgt strategies, Instruct patient to recognize signs & symptoms of depression and Instruct patient to recog 30-day Reassessments: 30 day Reassessments:: Met Psychosocial - 90-Day Assess Target Goals Target Goals Referral to Behavioral Health PS - Interventions: Yes: Attend Stress Management Classes and No: Referral to Behavioral Health if PHQ-9 score >9:, No: Referral to [facility] and No: Referral to Physician if PHQ-9 if score is 5-9: Psychosocial - Final Assessmen Target Goals Target Goals Referral to Behavioral Health PS - Interventions: Yes: Attend Stress Management Classes and No: Referral to Behavioral Health if PHQ-9 score >9:, No: Referral to [facility] and No: Referral to Physician if PHQ-9 if score is 5-9: Nutrition - 90-Day Assessment Weight Mgt (Other Care) Height: 5 ft 8 in Weight:: 210 lb BMI: 31.9 Nutrition - Final Assessment Weight Mgt (Other Care) Height: 5 ft 8 in Weight:: 210 lb BMI: 31.9
[2024-02-28 07:29] VITALS: BP 108/64; BMI 31.9
== END 2024-03-26 23:59 ==
LOC: CR 08:00
PROVIDERS: PCP Family Medicine; Referring Provider Internal Medicine Cardiovascular Disease; Visit Provider Internal Medicine Cardiovascular Disease
DX: R53.83 Other fatigue (principal); R20.0 Anesthesia of skin; R20.2 Paresthesia of skin; R07.89 Other chest pain; I10 Essential (primary) hypertension
CPT/HCPCS: 93798

== ENCOUNTER → 2024-03-27 | Outpatient (CLI) | payer OTHER, SELFPAY ==
[2024-03-26 08:19] VITALS: BMI 31.9
[2024-03-27 13:31] LABS: Anion Gap 3 (5-15); BUN 18 mg/dL (7-18); BUN/Creat Ratio 14.9 RATIO (10-20); Chloride 105 mmol/L (98-107); Creatinine, Serum 1.21 mg/dL (0.70-1.30); EST Glomerular Filtration Rate 65 mL/min (>60); Est Glom Filt Rate - Afr Amer 79 mL/min (>60); Glucose 91 mg/dL (74-106); Magnesium 2.3 mg/dL (1.6-2.6); Potassium 3.4 mmol/L (3.5-5.1); Sodium Level 138 mmol/L (136-145)
== END | disposition home or self-care (01) ==
PROVIDERS: PCP Family Medicine; Referring Provider Internal Medicine Cardiovascular Disease; Visit Provider Internal Medicine Cardiovascular Disease
DX: R20.0 Anesthesia of skin (principal); I47.20 Ventricular tachycardia, unspecified; R20.2 Paresthesia of skin; M25.50 Pain in unspecified joint; R11.0 Nausea; R68.2 Dry mouth, unspecified
CPT/HCPCS: 36415; 80048; 83735

== ENCOUNTER → 2024-04-19 | Outpatient (CLI) | payer OTHER, SELFPAY ==
[2024-03-26 08:19] VITALS: BMI 31.9
[2024-04-19 11:12] LABS: Anion Gap 6 (5-15); BUN 21 mg/dL (7-18); BUN/Creat Ratio 21.6 RATIO (10-20); Chloride 108 mmol/L (98-107); Creatinine, Serum 0.97 mg/dL (0.70-1.30); EST Glomerular Filtration Rate 84 mL/min (>60); Est Glom Filt Rate - Afr Amer 102 mL/min (>60); Glucose 87 mg/dL (74-106); Sodium Level 139 mmol/L (136-145)
[2024-04-19 11:28] LABS: CRP < 2.90 mg/L (0.0-3.0)
== END | disposition home or self-care (01) ==
LOC: LAB 09:20
PROVIDERS: PCP Family Medicine; Referring Provider Nurse Practitioner Gerontology; Visit Provider Physician Assistant Medical
DX: R25.2 Cramp and spasm (principal); E87.6 Hypokalemia
CPT/HCPCS: 36415; 80048; 86140

== ENCOUNTER 2024-04-26 06:30 | Outpatient (RCR) | payer OTHER, SELFPAY ==
[2024-03-26 08:19] VITALS: BMI 31.9
[2024-03-27 00:51] VITALS: BP 108/64; BP 110/80
--- NOTE | 2024-04-26 08:46 | PCM.CR.ITP ---
Exercise - Initial Assessment Physician Prescribed Exercise Modalities: Treadmill, Rower and Schwinn Airdyne AD-7 Target Heart Rate:: 122-137 Nutrition - Initial Assessment Weight Mgt (Other Care) Height: 5 ft 8 in Weight:: 210 lb BMI: 31.9 Core - Initial Assessment Hypertension Resting Blood Pressure:: 138/82 [place] [employer] Hypertension Guidelines Psychosocial - Initial Assess Target Goals Target Goals Patient Health Questionnaire PHQ-9 Screening Discharge Assessment: 1. Little interest or pleasure in doing things: Several days 2. Feeling down, depressed, or hopeless: Several days 3. Trouble falling or staying asleep, or sleeping too much: Several days 4. Feeling tired or having little energy: Several days 5. Poor appetite or overeating: Not at all 6. Feeling bad about yourself -- or that you are a failure or have let yourself or your family down: Not at all 7. Trouble concentrating on things, such as reading the newspaper or watching television: Not at all 8. Moving or speaking so slowly that other people could have noticed. Or the opposite - being so fidgety or restless that you have been moving around a lot more than usual: Not at all 9. Thoughts that you would be better off , or of hurting yourself in some way: Not at all How difficult have these problems made it for you to do your work, take care of things at home, or get along with other people?: Somewhat difficult Total Score: 4 Self-Efficacy 6-Item Scale Discharge Assessment: We would like to know how confident you are in doing certain activities. Please select your confidence level for: Fatigue Select Number: 10 Physical Discomfort or Pain Select Number: 10 Emotional Distress Select Number: 10 Other Symptoms or Health Problems Select Number: 10 Different Tasks and Activities Select Number: 10 Medication Select Number: 10 Total Score:: 10 Nutrition Survey Nutrition Survey Instructions Scoring Instructions Exercise - 30-day Assessment Physician Prescribed Exercise Modalities: Treadmill, Rower and Schwinn dyne AD-7 Exercise - 60-day Assessment Physician Prescribed Exercise Modalities: Treadmill, Rower and Schwinn Airdyne AD-7 Exercise - 90-day Assessment Physician Prescribed Exercise Modalities: Treadmill, Rower and Schwinn Airdyne AD-7 Exercise - Final/Discharge Visit Date of Eval: 04/26/24 Session #:: 24 Physician Prescribed Exercise Modalities: Treadmill, Rower and Schwinn Airdyne AD-7 Frequency: 2x/week for 18 weeks [36 sessions] and 3x/week for 12 weeks [36 sessions] Intensity: 60-80% of age predicted maximum heart rate reserve Duration: 30 - 45 minutes Current METSs:: 7.5 Target Heart Rate:: 122-137 Target Heart Rate:: 122-137 Current RPE:: 12-13 Maximum Heart Rate:: 136 Resting Blood Pressure: 138/82 Maximum Exercise Blood Pressure: 160/98 EKG Type: NSR to ST Outcomes & Goals Goals:: Verbalizes understanding of THR, RPE & goal METS by session 6, Documents in home exercise log/reports 30 min aerobic 5 day/wk by DC, Demonstrates accurate pulse taking by DC and Other additional outcome/goals: see below Intervention & Plan Exercise Program Goals: Instruct on personal THR & RPE, Instruct on MET level & personal MET goal, Show patient to take own pulse /validate performance until accurate, Instruct on home exercise and Other additional plan/int 30-day Reassessments 30 day Reassessments:: Met Physical Activity Home Exercise Physical Activity - Home Exercise: Safe Exercise, Warm-up, Self-monitoring, Cool-Down, Home Exercise > 30 min Daily and Sitting Time <3 hours/daily Intervention & Plan Plan/Intervention: Instruct warm-up & cool-down if exercising at > 2 METs, Instruct on symptoms of exercise intolerance & actions to take, Instruct & monitor on saf, Assess intial functional capacity & safety risk and Other See below 30-day Reassessments 30 day Reassessments:: Met Nutrition - 30-Day Assessment Weight Mgt (Other Care) Height: 5 ft 8 in Weight:: 210 lb BMI: 31.9 Nutrition - 60-Day Assessment Weight Mgt (Other Care) Height: 5 ft 8 in Weight:: 210 lb BMI: 31.9 Core - Final Assessment Visit Date of Eval: 04/26/24 Session #:: 24 Medication Compliance Preventative Medication(s):: Aspirin, Clopidogrel/P2Y12 inhibit, Statin/lipid and Beta jb H/O mental health issues: depression, anxiety, or addiction?: No Doesn?t believe in the benefits of treatment?: No Believes medications are unnecessary or harmful?: No Has a concern about medication side effects?: No Expresses concern over the cost of medications?: No Outcomes/Goals: Verbalizes medications,desired effect & common side effects @ DC, Pt self-reports following medication regimen, Keeps card in wallet w/medications listed by DC and Other additional outcome/goals: Interventions/plans: Instruct on medication effects & side effects, Review medication list w/patient every two weeks, Instruct importance of taking meds as ordered & assist problem solving and Other additional 30-day Reassessments:: Met Tobacco Use Tobacco Use: Non-smoker Hypertension Hypertension Diagnosis:: Hypertension ICD-10 I10 Resting Blood Pressure:: 138/82 [place] [employer] Hypertension Guidelines Peak Exercise Blood Pressure:: 160/98 Outcomes/Goals: Able to verbalize/achieve optimal blood pressure <130/80, Incorporates diet changes & exercise for blood pressure control by DC and Other additional outcomes/goals Interventions/plan: Instruct on optimal blood pressure, hypertension & medications, Instruct on effects of sodium, alcohol, stress, exercise &hypertension and Other additional plan/interventions 30 day Reassessments:: Met Tobacco Cessation Referral Smoking Cessation Referral:: No Individual Education/Counseling:: No Education Schedule Given:: Yes Core - 60-Day Assessment Hypertension Resting Blood Pressure:: 138/82 [place] [employer] Hypertension Guidelines Psychosocial - 30-Day Assess Target Goals Target Goals Psychosocial - 60-Day Assess Target Goals Target Goals Psychosocial - 90-Day Assess Target Goals Target Goals Psychosocial - Final Assessmen VIsit Date of Eval: 04/26/24 Session #:: 24 History of previous Mental disease:: No Target Goals Target Goals Outcomes/Goals: See list Psychosocial Outcomes/Goals:: ID's personal stressors & 2 strategies to manage stress by discharge and Other Additional outcome/goals: Intervention/Plan: See List Interventions/Plan:: Assess stressors,coping strategies & signs of derpression on admission, Instruct/assist pt to develop coping & personal stress Mgt strategies, Refer to Behavioral Health if appropriate, Refer to Physician if appropriate, Instruct patient to recognize signs & symptoms of depression, Instruct patient to recog and Other additional plan/intervention 30-day Reassessments: 30 day Reassessments:: Met Nutrition - 90-Day Assessment Weight Mgt (Other Care) Height: 5 ft 8 in Weight:: 210 lb BMI: 31.9 Nutrition - Final Assessment Visit Date of Assessment:: 04/26/24 Session #:: 24 Cholesterol/Lipids (Other Core Measures) Determine presence & major risk factors that modify LDL goal: Hypertension or hypertensive medication, Low HDL cholesterol <40 mg/dL*, Family history of premature CHD in Male < 55 years: female <65 yearsFa and Age men > 45 years; women >/= 55 years Outcomes/Goals: Pt IDs own risk factors & lifestyle modifications by Session 10, Verbalizes symptoms of angina & response by session 3., Pt independently manages and Other Additional Outcomes/Goals: Intervention/Plan: Advocate for lipid panel cholesterol medication if applicable, Instruct on personal lipid levels & lipid goals/NCEP guidelines, Instruct on cholesterol and Other additional plan/int 30-day Reassessments:: Met Diabetes (Other Core Measures) Diabetes Type: Not Applicable Weight Mgt (Other Care) Height: 5 ft 8 in Weight:: 210 lb BMI: 31.9 Diagnosis Overweight/Obesity BMI> 30% ICD-10 E66: Yes Diagnosis High BMI/Morbid Obesity BMI> 35% ICD-10 Z68: No Outcomes/Goals: Pt sets, maintains & shows weight loss goal & trend during rehab and Other additional outcomes/goals Intervention/Plan: Instruct on ideal BMI & set weight loss goal w/patient, Assist pt to ID & incorporate diet changes for weight loss by S9, Refer to Structured Weight Loss program as appropriate, Encourage goal of using 250-300dcal per session for weight loss and Other additional plan/interventions 30 day Reassessments:: Met Healthy Eating Habits Will attend diet classes:: Yes Outcomes/Goals:: Consume diet rich in vegs,fruits,whole grain/high fiber,fish,lean meat, Limit sat/trans fats,cholesterol & added salts & sugars and Other additional outcome/goals: Intervention/Plan:: Assess current eating habits and Other Additional plan/interventions 30-day Reassessments:: Met Education Gave educational materials for:: Signs & symptoms of hypoglycemia, Signs & symptoms of hyperglycemia, Relate diabetes to coronary artery disease and Healthy eating
[2024-04-26 08:58] VITALS: BP 138/82; BMI 31.9
== END 2024-04-26 23:59 ==
LOC: CR 06:30
PROVIDERS: PCP Family Medicine; Referring Provider Internal Medicine Cardiovascular Disease; Visit Provider Internal Medicine Cardiovascular Disease
DX: R53.83 Other fatigue (principal); R20.0 Anesthesia of skin; R20.2 Paresthesia of skin; R07.89 Other chest pain; I10 Essential (primary) hypertension
CPT/HCPCS: 93798

== ENCOUNTER 2024-05-10 06:30 | Outpatient (RCR) | payer OTHER, SELFPAY ==
[2024-04-27 02:24] VITALS: BP 108/64; BP 110/80; BP 138/82
== END 2024-05-26 23:59 ==
LOC: CR 06:30
PROVIDERS: PCP Family Medicine; Referring Provider Internal Medicine Cardiovascular Disease; Visit Provider Internal Medicine Cardiovascular Disease
DX: R53.83 Other fatigue (principal); R20.0 Anesthesia of skin; R20.2 Paresthesia of skin; R07.89 Other chest pain; I10 Essential (primary) hypertension
CPT/HCPCS: 93798

== ENCOUNTER → 2024-10-15 | Outpatient (CLI) | payer OTHER, SELFPAY ==
[2024-10-15 08:22] LABS: AST(SGOT) 25 U/L (15-37); Alanine Aminotransfer ALT/SGPT 39 U/L (16-61); Albumin, Serum 3.8 g/dL (3.2-5.0); Alkaline Phosphatase 42 U/L (45-117); Cholesterol 166 mg/dL (200); Globulin 3.4 g/dL (2.2-4.2); High Density Lipoprotein 45 mg/dL; Protein, Total 7.2 g/dL (6.4-8.2); Triglycerides 75 mg/dL; Very Low Density Lipoprotein 15 mg/dL (5-40)
== END | disposition home or self-care (01) ==
PROVIDERS: PCP Family Medicine; Referring Provider Nurse Practitioner Gerontology; Visit Provider Nurse Practitioner Gerontology
DX: I25.10 Atherosclerotic heart disease of native coronary artery without angina pectoris (principal)
CPT/HCPCS: 36415; 80061; 80076